=== PATIENT | female | born 1985 | race Caucasian/White ===

== ENCOUNTER → 2018-05-26 | Outpatient (CLI) | payer BC ==
[~2018-05-26] MED LIST: CEPH500C PO; CODE-54 PO; FERR-57 PO; FOLI-88 PO; IBP600T1 PO; ONDA4TAB8 PO; PHEN200T27 PO; POLY10DR OU; PREN1TAB14 PO; SULF1TAB7 PO; TRAM50TA2 PO; TRAZ-144 PO
--- NOTE | 2018-05-26 13:11 | Diagnostic Imaging Report ---
PROCEDURE: US Non-OB pelvis comp/trans. TECHNIQUE: Multiple real-time grayscale images were obtained of the pelvis in various projections endovaginally. Transabdominal imaging was also performed. INDICATION: Fibroids and irregular menses. FINDINGS: The uterus is retroflexed measuring 8.4 x 5.5 x 4.7 cm. The endometrium is approximately 7 mm in thickness. There appears to be an IUD appropriately centered in the endometrial canal. No definite myometrial mass is identified. Right ovary measures 2.8 x 3.7 x 3.6 cm. The right ovary does contain blood flow. The right ovary contains an approximately 2.7 x 2.8 cm cyst. Left ovary is approximately 2.2 x 2.2 cm. Left ovary is limited in evaluation due to bowel gas. There does appear to be a cyst in the posterior cul-de-sac region approximately 2.9 x 2.1 cm. There is some free fluid in the posterior cul-de-sac. No other abnormalities are seen. IMPRESSION: 1. No evidence of uterine fibroids. 2. IUD appears to be appropriately centered in the endometrial canal. 3. 2.8 cm right ovarian cyst. 4. Cyst in the posterior cul-de-sac region, indeterminate. No other significant abnormality is identified. Dictated by: Dictated on workstation # [id number]
== END ==
LOC: RAD 10:44
PROVIDERS: ATTEND Obstetrics & Gynecology
DX: N83.201 Unspecified ovarian cyst, right side (principal); Z97.5 Presence of (intrauterine) contraceptive device
CPT/HCPCS: 76830; 76856

== ENCOUNTER 2018-06-23 13:53 | Outpatient (CLI) | payer BC ==
[~2018-06-23] VITALS: Ht 167.6 cm; Wt 72.1 kg
[2018-06-23 14:23] VITALS: BP 114/80
[2018-06-23] MEDS ORDERED: MULT-884 PO (14:34)
[2018-06-23] MEDS ORDERED: LEVE500T99 PO (14:34)
[2018-06-23] MEDS ORDERED: BIOT25007 PO (14:34)
[2018-06-23 14:36] LABS: BASOPHILS % (AUTO) 1 % (0-10); EOSINOPHILS # (AUTO) 0.2 10^3/uL (0.0-0.3); EOSINOPHILS % (AUTO) 3 % (0-10); HEMATOCRIT 40 % (35-52); HEMOGLOBIN 13.5 G/DL (11.5-16.0); LYMPHOCYTES # (AUTO) 1.5 X 10^3 (1.0-4.0); LYMPHOCYTES % (AUTO) 26 % (12-44); MEAN CORPUSCULAR HEMOGLOBIN 30 PG (25-34); MEAN CORPUSCULAR HGB CONC 34 G/DL (32-36); MEAN CORPUSCULAR VOLUME 90 FL (80-99); MEAN PLATELET VOLUME 8.9 FL (7.4-10.4); MONOCYTES # (AUTO) 0.3 X 10^3 (0.0-1.0); MONOCYTES % (AUTO) 6 % (0-12); NEUTROPHILS # (AUTO) 3.7 X 10^3 (1.8-7.8); NEUTROPHILS % (AUTO) 64 % (42-75); PLATELET COUNT 241 10^3/uL (130-400); RED BLOOD COUNT 4.47 10^6/uL (4.35-5.85); RED CELL DISTRIBUTION WIDTH 12.8 % (10.0-14.5); WHITE BLOOD COUNT 5.8 10^3/uL (4.3-11.0)
== END 2018-06-23 14:35 | disposition home or self-care (01) ==
LOC: PREOP 13:53
PROVIDERS: ATTEND Obstetrics & Gynecology
DX: Z01.812 Encounter for preprocedural laboratory examination (principal); Z11.2 Encounter for screening for other bacterial diseases; N87.9 Dysplasia of cervix uteri, unspecified; N93.9 Abnormal uterine and vaginal bleeding, unspecified; R10.2 Pelvic and perineal pain; Z80.49 Family history of malignant neoplasm of other genital organs
CPT/HCPCS: 36415; 84703; 85025; 86850; 86900; 86901; 87081

== ENCOUNTER 2018-06-26 06:18 | Day surgery (SDC) | payer BC ==
[~2018-06-26] VITALS: Ht 167.6 cm; Wt 72.1 kg
[~2018-06-26 06:18] MED LIST changes: +BIOT25007 PO; +LEVE500T99 PO; +MULT-884 PO
--- OUTSIDE RECORDS SUMMARY | 2018-06-26 06:30 | XMS REPORT | Continuity of Care Document ---
Author Author [facility] Organization [facility] Address Unknown Phone Unavailable Allergies Active Description Code Type Severity Reaction Onset Reported/Identified Relationship to Patient Clinical Status Yes No Known Drug Allergies [id number] Drug Allergy Unknown N/A 06/07/2011 Yes lactose intolerance lactose intolerance Mild N/A 11/16/2014 Medications There is no data. Problems Date Dx Coded Attending Type Code Diagnosis Diagnosed By 06/09/2011 Ot 648.91 OT CURR COND-DELIVERED 06/09/2011 Ot V02.51 GROUP B STREPT CARRIER/SUSPECTED CARRIER 06/09/2011 Ot V06.1 DIPHTHERIA- TETANUS-PERTUSSIS, COMBINED [ 06/09/2011 Ot V27.0 DELIVER- SINGLE LIVEBORN 11/16/2014 KYM TANNER MD Ot 276.8 11/16/2014 KYM TANNER MD Ot 599.0 11/16/2014 KYM TANNER MD Ot 787.01 11/17/2014 KYM TANNER MD Ot 276.8 HYPOPOTASSEMIA 11/17/2014 KYM TANNER MD Ot 372.30 CONJUNCTIVITIS NOS 11/17/2014 KYM TANNER MD Ot 465.9 ACUTE URI NOS 11/17/2014 KYM TANNER MD Ot 590.80 PYELONEPHRITIS NOS 11/17/2014 KYM TANNER MD Ot 599.0 11/17/2014 KYM TANNER MD Ot 787.01 NAUSEA WITH VOMITING 01/10/2015 Ot 789.01 01/10/2015 Ot 649.53 01/10/2015 Ot 649.53 01/10/2015 Ot 649.63 01/10/2015 Ot 729.5 04/04/2016 Ot 649.53 SPOTTING COMP , ANTEPARTUM COND 04/04/2016 Ot 649.53 SPOTTING COMP , ANTEPARTUM COND 04/04/2016 Ot 649.63 UTERINE SIZE DATE DISCREPANCY, ANTEPARTU 04/04/2016 Ot 729.5 PAIN IN LIMB 05/28/2018 DILSHAD CROWE DO Ot N83.201 UNSPECIFIED OVARIAN CYST, RIGHT SIDE 05/28/2018 DILSHAD CROWE DO Ot Z97.5 PRESENCE OF (INTRAUTERINE) CONTRACEPTIVE Procedures Code Description Performed By Performed On 73.6 06/08/2011 Results There is no data. Encounters ACCT No. Visit Date/Time Discharge Status Pt. Type Provider Facility Loc./Unit Complaint [id number] 05/26/2018 10:44:00 05/26/2018 23:59:59 CLS Outpatient DILSHAD CROWE DO [facility] RAD FIBROIDS [id number] 11/15/2014 21:25:00 11/17/2014 09:00:00 DIS Inpatient CIRO MARSHALL, KYM Hough [facility] SURGICAL SEPSIS,UTI, HYPOKALEMIA,N/V [id number] 06/26/2018 10:45:00 PEN Preadmit DILSHAD CROWE DO [facility] SDC RECURRENT CERVICAL DYSPLASIA [id number] 01/10/2015 15:39:00 Document Registration [id number] 11/16/2014 10:26:00 Document Registration [id number] 06/07/2011 19:18:00 Document Registration [id number] 05/28/2011 13:45:00 Document Registration [id number] 01/17/2011 07:59:00 Document Registration [id number] 11/21/2010 13:04:00 Document Registration [id number] 10/25/2010 12:43:00 Document Registration [id number] 03/27/2010 09:01:00 Document Registration
[2018-06-26] MEDS ORDERED: BUPIVACAINE 0.25% 30 ML (SENSORCAINE) VIAL ONE (06:32)
[2018-06-26] MEDS ORDERED: MIDAZOLAM 2 MG/2 ML (VERSED) VIAL ONE (06:50)
[2018-06-26] MEDS ORDERED: ONDANSETRON 4 MG/2 ML (SDV) Z0FRAN ONE (06:50)
[2018-06-26] MEDS ORDERED: LIDOCAINE PF 2% 5 ML (XYLOCAINE) VIAL ONE (06:50)
[2018-06-26] MEDS ORDERED: fentaNYL INJECTION 100 MCG/2 ML AMP ONE (06:50)
[2018-06-26] MEDS ORDERED: proPOfol 200 MG/20 ML (DIPRIVAN) VIAL IV ONE (06:50)
[2018-06-26] MEDS ORDERED: DEXAMETHASONE 10 MG/ML (DECADRON) 1 ML VIAL ONE (06:50)
[2018-06-26] MEDS ORDERED: SEVOFLURANE (ULTANE) 15 ML INHAL SOLN ONE ×7 (06:51→08:51)
[2018-06-26] MEDS ORDERED: ROCURONIUM 10 MG/ML 5 ML SYRINGE IV ONE ×2 (06:51→08:22)
[2018-06-26] MEDS ORDERED: LACTATED RINGERS 1,000 ML IV PRN (06:58)
[2018-06-26] MEDS ORDERED: LACTATED RINGERS 1,000 ML IV ONE (06:58)
[2018-06-26] MEDS ORDERED: ceFAZolin INJECTION 1,000 MG in NS (IVPB) 50 ML IV ONE (07:00)
[2018-06-26] MEDS ORDERED: metroNIDAZOLE 500MG/100ML IVPB 100 ML IV ONE (07:00)
[2018-06-26] MEDS ORDERED: CATHETER FLUSH 10 ML SYR IV PRN (07:15)
--- NOTE | 2018-06-26 07:16 | Progress Note-Pre Operative ---
Pre-Operative Progress Note H&P Reviewed The H&P was reviewed, patient examined and no changes noted. Date Seen by Provider: Jun 26, 2018 Time Seen by Provider: 07:15 Date H&P Reviewed: Jun 26, 2018 Time H&P Reviewed: 07:15 Pre-Operative Diagnosis: Recurrent cervical dysplasia, AUB, CPP DILSHAD CROWE DO Jun 26, 2018 7:16 am
[2018-06-26] MEDS ORDERED: DOCU100C37 PO (07:22)
[2018-06-26] MEDS ORDERED: IBUP-844 PO (07:22)
[2018-06-26] MEDS ORDERED: SIME80TA16 PO (07:22)
[2018-06-26] MEDS ORDERED: HYDR-34 PO (07:22)
--- NOTE | 2018-06-26 07:24 | Discharge Inst-Women's Service ---
Discharge Inst-Women's Serv Depart Medication/Instructions New, Converted or Re-Newed RX: RX on Chart Consults/Follow Up Additional Follow Up: Yes Orders/Referrals Dr. Briggs office in 7-10 days and in 8 weeks Activity Activity: Activity as Tolerated Driving Instructions: No Driving for 1 Week NO SMOKING: NO SMOKING Nothing Inside Vagina: No Douching, No [place], No Tampons Diet Discharge Diet: No Restrictions Symptoms to Report to : Bleeding Excessive, Pain Increased, Fever Over 101 Degrees F, Vaginal Bleeding Increase, Questions/Concerns For Any Problems or Questions: Contact Your Physician Skin/Wound Care Infection Signs and Symptoms: Increased Redness, Foul Odor of Wound, Increased Drainage, Skin Itchy or Has a Rash, Increased Swelling, Temperature Above 101 F Operative Area Clean and Dry: Keep Incision Clean/Dry Stitches/Raymond/Dermabond: Dermabond, Care of Stitches Bathing Instructions: DILSHAD Watters DO Jun 26, 2018 7:23 am
[2018-06-26] MEDS ORDERED: ZOLPIDEM 5 MG (AMBIEN) TAB PO PRN (07:30)
[2018-06-26] MEDS ORDERED: SIMETHICONE 80 MG (MYLICON) CHEW PO PRN (07:30)
[2018-06-26] MEDS ORDERED: ANTACID SUSP 30 ML UDC (MYLANTA) PO PRN (07:30)
[2018-06-26] MEDS ORDERED: CHLORASEPTIC LOZENGE MM PRN (07:30)
[2018-06-26] MEDS ORDERED: DOCUSATE SODIUM 100 MG (COLACE) CAP PO PRN (07:30)
[2018-06-26] MEDS ORDERED: NEOSTIGMINE 1 MG/ML 5 ML SYRINGE ONE (08:42)
[2018-06-26] MEDS: KETOROLAC 30 MG/ML VIAL IV PRN ×3 (08:42→21:08)
[2018-06-26] MEDS ORDERED: GLYCOPYRROLATE 0.2 MG/ML (ROBINUL) 2 ML VIAL ONE (08:42)
[2018-06-26] MEDS ORDERED: morphine INJ 10 MG/ML 1ML (SYR OR VIAL) ONE (08:47)
[2018-06-26] MEDS ORDERED: ONDANSETRON 4 MG/2 ML (SDV) Z0FRAN IVP PRN (09:15)
[2018-06-26] MEDS ORDERED: morphine INJ 10 MG/ML 1ML (SYR OR VIAL) IVP ONE (09:15)
[2018-06-26] MEDS ORDERED: HYDROmorphone 2 MG/ML VIAL (DILAUDID) IV ONE (09:15)
[2018-06-26 10:15] VITALS: BP 120/67
[2018-06-26] MEDS: HYDROcodone/APAP 7.5 MG/325 MG (LORTAB, LORCET PLUS) TABLET PO PRN ×2 (10:50→16:25)
[2018-06-26] MEDS: LACTATED RINGERS 1,000 ML IV SCH ×3 (10:51→16:25)
[2018-06-26] MEDS: ONDANSETRON 4 MG/2 ML (SDV) Z0FRAN IV PRN ×3 (12:13→20:35)
--- NOTE | 2018-06-26 13:32 | Anesthesia-General Post-Op ---
General Patient Condition Mental Status/LOC: Same as Preop Cardiovascular: Satisfactory Nausea/Vomiting: Absent Respiratory: Satisfactory Pain: Controlled Complications: Absent Post Op Complications Complications None Follow Up Care/Instructions Patient Instructions None needed. Anesthesia/Patient Condition Patient Condition Patient is doing well, no complaints, stable vital signs, no apparent adverse anesthesia problems. No complications reported per nursing. NAOMY SILVA CRNA Jun 26, 2018 13:32
--- NOTE | 2018-06-26 13:59 | OPERATIVE REPORT ---
DATE OF SERVICE: 06/26/2018 PREOPERATIVE DIAGNOSES: 1. A 33-year-old female with recurrent cervical dysplasia. 2. Abnormal uterine bleeding. 3. Chronic pelvic pain. POSTOPERATIVE DIAGNOSES: 1. A 33-year-old female with recurrent cervical dysplasia. 2. Abnormal uterine bleeding. 3. Chronic pelvic pain. PROCEDURE PERFORMED: Robotic-assisted total laparoscopic hysterectomy with bilateral salpingectomy. SURGEON: Pedro Pablo Crowe DO. DISC SANDER: Daisy POLANCO. ANESTHESIA: General endotracheal. ESTIMATED BLOOD LOSS: 50 mL. URINE OUTPUT: 250 mL clear at the end of procedure. FLUIDS: 1600 mL lactated Ringer solution. FINDINGS: Grossly normal appearing uterus with a significant amount of serosal adhesions and adhesions of the right ovary to the posterior broad ligament. Evidence from previous ovarian surgery. Grossly normal appearing left ovary and fallopian tube, grossly normal upper abdominal anatomy. SPECIMENS SENT: Uterus, bilateral fallopian tubes. INDICATIONS FOR PROCEDURE: This is a 33-year-old female patient who has had a long ongoing history of issues with abnormal bleeding that she has attempted multiple treatment modalities and all have been unsuccessful, including several attempts and trials of oral contraceptive pills, Depo-Provera injection and even a Mirena IUD. The patient was requesting proceeding with a hysterectomy due to more conservative measures failing. She also has a history of recurrent cervical dysplasia and is concerned about ongoing issues with this and follow up involved in that. Therefore, I did discuss with the patient more conservative measures, including a D and C with possible endometrial ablation; however, she was wanting to proceed with more aggressive measures due to history of cervical dysplasia. Risks of the procedure were discussed with the patient in detail including risk of bleeding, infection, damage to surrounding structures including, but not limited to bowel, bladder, ureter, kidneys, possible need for reoperation, and possible long-term complications. We also discussed recovery time frame, risk from anesthesia and even . After everything was discussed with the patient in the preoperative area, consent was obtained, the patient was taken to the operating room. DESCRIPTION OF PROCEDURE IN DETAIL: Once in the operating room, general anesthesia was found to be adequate. She was placed in the dorsal lithotomy position, prepped and draped in normal sterile fashion. A timeout was performed. A Urena catheter was placed using sterile technique. A weighted speculum was inserted into the patient's vagina. A right angle retractor was used to visualize the cervix, which was grasped at 12 o'clock position using a long Allis clamp. I then placed an #0 Vicryl suture to the anterior lip of the cervix and removed the Allis clamp. I used the suture as my retraction point. I then gently sound the uterine cavity depth, which was found to 8 cm. I then selected an 8 cm Christelle uterine manipulator tip and a 3.5 cm colpotomy ring. I assembled the Christelle manipulator and advanced the manipulator tip into the uterus deployed into the balloon and advanced the colpotomy ring around the vaginal fornix. Excellent uterine manipulation is appreciated on bimanual examination after this was done. I then performed a change of gloves. I took my attention to the abdomen where infraumbilically I infiltrated this area using 0.25% Marcaine, making 8 mm incision and directed Veress needle through the incision until intraperitoneal placement was confirmed using a saline drop test. I then proceeded with insufflation using CO2 gas and opening pressure of 4 mmHg was note. I proceeded to maximum pressure of 15 mmHg, at which point I removed the Veress needle and introduced an 8 mm blunt da Elle camera trocar. Once this was in place, I am able to confirm a trocar placement using the da Elle laparoscope. I then had the patient placed in steep Trendelenburg after briefly scanning the upper abdominal anatomy which was found to be normal. Once in steep Trendelenburg, I am able to visualize all of the anatomy necessary to proceed with the procedure as planned. I then placed two lateral trocars approximately 8 to 10 cm lateral to my infraumbilical trocar. The skin was infiltrated using 0.25% Marcaine, 8 mm incisions were made and the trocars were both placed under direct visualization of the laparoscope. Once the trocars were in place, I bring in the da Elle robot and docked in the appropriate fashion placing the monopolar marty in the right hand and a da Elle vessel sealer in the left hand. I then took my place at the [facility] operative console and performed the following dissection bilaterally starting at the uteroovarian ligament, bipolar cauterized and transected using the vessel sealer. I then created a window in the mesosalpinx using the monopolar marty and took this laterally using the vessel sealer amputating the fallopian tube from its blood supply. I then grasped the round ligament, bipolar cauterized and transected using the vessel sealer and then I am able to grasp the entire broad ligament, bipolar cauterized and transected using the vessel sealer down to the level of the lower uterine segment, at which point I the anterior and posterior leaflets of the broad ligament. The anterior leaflet dissection was taken down to the anterior vaginal fornix. The posterior leaflet was taken down to the posterior vaginal fornix. This allows me to skeletonize the uterine vessels laterally and bipolar cauterized and I then transected them using the vessel sealer as well. I then created a window in the anterior vaginal fornix using monopolar marty and took this circumferentially around the vaginal fornix amputating the cervix away from the vagina. The entire specimen was then removed through the vagina. I then closed the lateral vaginal apices of the vaginal cuff using 2-0 Vicryl suture in a [id number] fashion, colposuspending them to the uterosacral ligaments. I then closed the remainder of the vaginal cuff using 2-0 V-Loc in a running fashion, after which there was no active bleeding noted from any of my dissection planes. I then undocked the da Elle robot and proceeded with the remainder of the case laparoscopically. I then copiously irrigated the pelvis with normal saline. Once again, there was no active bleeding noted from any of my dissection planes. I then placed FloSeal hemostatic agent over all my planes of dissection and I had the patient taken out of steep Trendelenburg. The lateral trocars were then removed under direct visualization of the laparoscope. The infraumbilical trocar was left in place to release insufflation and to introduce 10 mL of 0.25% Marcaine for postoperative pain management. I then removed this trocar as well. The skin was then reapproximated using 4-0 Monocryl in simple interrupted fashion. Skin Affix was applied over the incisions and Band-Aids were placed over these. A Urena catheter was left in place. All other instruments were removed from the patient. Lap and sponge counts were correct at the end of the procedure and instrument count was correct as well. Two grams of Ancef and 500 mg of Flagyl were given preoperatively for infection prophylaxis. The patient tolerated the procedure well and sent to recovery in stable condition. Job ID: [id number] DocumentID: [id number] Dictated Date: 06/26/2018 09:14:21 Hypnotherapist Date: 06/26/2018 13:59:05 Dictated By: PEDRO PABLO CROWE DO
[2018-06-26 16:30] VITALS: BP 136/75
[2018-06-26 20:35] VITALS: BP 112/74
[2018-06-26] MEDS ORDERED: PROMETHAZINE INJ 25 MG/ML (PHENERGAN) AMP IVP PRN (21:30)
[2018-06-26 23:40] VITALS: BP 99/68
[2018-06-27 05:18] VITALS: BP 92/60
[2018-06-27] MEDS ORDERED: IBUPROFEN 600 MG (MOTRIN) TAB PO PRN (07:00)
[2018-06-27 09:40] VITALS: BP 112/63
== END 2018-06-27 09:55 | disposition home or self-care (01) ==
LOC: SDC 06:18 → WS 10:40 → SDC 06-27 09:55
PROVIDERS: ATTEND Obstetrics & Gynecology
DX: N87.0 Mild cervical dysplasia (principal); D25.2 Subserosal leiomyoma of uterus; Z80.49 Family history of malignant neoplasm of other genital organs; G40.909 Epilepsy, unspecified, not intractable, without status epilepticus; Z79.899 Other long term (current) drug therapy
CPT/HCPCS: 86850; 86900; 86901; 88307; 94664

== ENCOUNTER 2018-07-07 19:33 | Emergency (ER) | payer BC ==
[~2018-07-07] VITALS: Ht 162.6 cm; Wt 65.8 kg
[~2018-07-07 19:33] MED LIST changes: +DOCU100C37 PO; +HYDR-34 PO; +IBUP-844 PO; +SIME80TA16 PO
--- OUTSIDE RECORDS SUMMARY | 2018-07-07 19:40 | XMS REPORT | Continuity of Care Document ---
Author Author [facility] Organization [facility] Address Unknown Phone Unavailable Allergies Active Description Code Type Severity Reaction Onset Reported/Identified Relationship to Patient Clinical Status Yes No Known Drug Allergies [id number] Drug Allergy Unknown N/A 06/07/2011 Yes lactose intolerance lactose intolerance Mild N/A 11/16/2014 Yes lactose [id number] Drug Allergy Unknown N/A 06/23/2018 Medications There is no data. Problems Date [...] 04/04/2016 Ot 729.5 PAIN IN LIMB 05/28/2018 AMRITA DILSHAD DE LA CRUZ Ot N83.201 UNSPECIFIED OVARIAN CYST, RIGHT SIDE 05/28/2018 AMRITA DE LA CRUZDILSHAD Ot Z97.5 PRESENCE OF (INTRAUTERINE) CONTRACEPTIVE 06/23/2018 AMRITA DILSHAD DE LA CRUZ Ot N83.201 UNSPECIFIED OVARIAN CYST, RIGHT SIDE 06/23/2018 AMRITA DILSHAD DE LA CRUZ Ot Z97.5 PRESENCE OF (INTRAUTERINE) CONTRACEPTIVE 06/24/2018 AMRITA DILSHAD DE LA CRUZ Ot N87.9 DYSPLASIA OF CERVIX UTERI, UNSPECIFIED 06/24/2018 AMRITA DILSHAD DE LA CRUZ Ot N93.9 ABNORMAL UTERINE AND VAGINAL BLEEDING, U 06/24/2018 MARISAFERMIN DILSHAD DE LA CRUZ Ot R10.2 PELVIC AND PERINEAL PAIN 06/24/2018 AMRITA DILSHAD DE LA CRUZ Ot Z01.812 ENCOUNTER FOR PREPROCEDURAL LABORATORY E 06/24/2018 MARISAFERMIN DILSHAD DE LA CRUZ Ot Z11.2 ENCOUNTER FOR SCREENING FOR OTHER BACTER 06/24/2018 MARISAFERMIN DILSHAD DE LA CRUZ Ot Z80.49 FAMILY HISTORY OF MALIGNANT NEOPLASM OF 06/27/2018 DILSHAD CROWE DO, Ot N87.9 DYSPLASIA OF CERVIX UTERI, UNSPECIFIED 06/27/2018 DILSHAD CROWE DO Ot N93.9 ABNORMAL UTERINE AND VAGINAL BLEEDING, U 06/27/2018 MARIASFERMIN DILSHAD DE LA CRUZ Ot R10.2 PELVIC AND PERINEAL PAIN 07/03/2018 DILSHAD CROWE DO Ot 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 07/03/2018 DILSHAD CROWE DO Ot G40.909 EPILEPSY, UNSP, NOT INTRACTABLE, WITHOUT 07/03/2018 DILSHAD CROWE DO Ot N87.0 MILD CERVICAL DYSPLASIA 07/03/2018 DILSHAD CROWE DO Ot Z79.899 OTHER [facility] (CURRENT) DRUG THERAPY 07/03/2018 DILSHAD CROWE DO Ot Z80.49 FAMILY HISTORY OF MALIGNANT NEOPLASM OF Procedures Code Description Performed By Performed On 73.6 06/08/2011 Results Test Result Range Methicillin resistant Staphylococcus aureus (MRSA) screening culture - 14:14 Methicillin resistant Staphylococcus aureus (MRSA) screening culture NEG NRG Complete blood count (CBC) with automated white blood cell (WBC) differential - 06/23/18 14:15 Blood leukocytes automated count (number/volume) 5.8 10*3/uL 4.3-11.0 Blood erythrocytes automated count (number/volume) 4.47 10*6/uL 4.35-5.85 Venous blood hemoglobin measurement (mass/volume) 13.5 g/dL 11.5-16.0 Blood hematocrit (volume fraction) 40 % 35-52 Automated erythrocyte mean corpuscular volume 90 [foz_us] 80-99 Automated erythrocyte mean corpuscular hemoglobin (mass per erythrocyte) 30 pg 25-34 Automated erythrocyte mean corpuscular hemoglobin concentration measurement ( mass/volume) 34 g/dL 32-36 Automated erythrocyte distribution width ratio 12.8 % 10.0-14.5 Automated blood platelet count (count/volume) 241 10*3/uL 130-400 Automated blood platelet mean volume measurement 8.9 [foz_us] 7.4-10.4 Automated blood neutrophils/100 leukocytes 64 % 42-75 Automated blood lymphocytes/100 leukocytes 26 % 12-44 Blood monocytes/100 leukocytes 6 % 0-12 Automated blood eosinophils/100 leukocytes 3 % 0-10 Automated blood basophils/100 leukocytes 1 % 0-10 Blood neutrophils automated count (number/volume) 3.7 10*3 1.8-7.8 Blood lymphocytes automated count (number/volume) 1.5 10*3 1.0-4.0 Blood monocytes automated count (number/volume) 0.3 10*3 0.0-1.0 Automated eosinophil count 0.2 10*3/uL 0.0-0.3 Automated blood basophil count (count/volume) 0.0 10*3/uL 0.0-0.1 Blood type T Indirect antibody screen panel - 06/23/18 14:15 ABO+Rh group OP NRG Blood group antibody screen NEGATIVE NRG Urine beta human chorionic gonadotropin (hCG) measurement - 06/23/18 14:20 Urine beta human chorionic gonadotropin (hCG) measurement NEGATIVE NEGATIVE Blood type T Indirect antibody screen panel - 06/26/18 06:40 ABO+Rh group OP NRG Transfusion band number [id number] NRG Blood group antibody screen NEGATIVE NRG Encounters ACCT No. Visit Date/Time Discharge Status Pt. Type Provider Facility Loc./Unit Complaint [id number] 06/26/2018 06:18:00 06/27/2018 09:55:00 DIS Outpatient DILSHAD CROWE DO [facility] SDC RECURRENT CERVICAL DYSPLASIA [id number] 06/23/2018 13:53:00 06/23/2018 14:35:00 DIS Outpatient DILSHAD CROWE DO [place] [facility] PREOP RECURRENT CERVICAL DYSPLASIA [id number] 05/26/2018 10:44:00 05/26/2018 23:59:59 CLS Outpatient MARISAFERMIN DILSHAD DE LA CRUZ [place] [facility] RAD FIBROIDS [id number] 11/15/2014 21:25:00 11/17/2014 09:00:00 DIS Inpatient CIRO MARSHALL, KYM Hough [facility] SURGICAL SEPSIS,UTI, HYPOKALEMIA,N/V [id number] 01/10/2015 15:39:00 Document Registration [id number] 11/16/2014 10:26:00 Document Registration [id number] 06/07/2011 19:18:00 Document Registration [id number] 05/28/2011 13:45:00 Document Registration [id number] 01/17/2011 07:59:00 Document Registration [id number] 11/21/2010 13:04:00 Document Registration [id number] 10/25/2010 12:43:00 Document Registration [id number] 03/27/2010 09:01:00 Document Registration
[2018-07-07 20:04] LABS: BASOPHILS # (AUTO) 0.1 10^3/uL (0.0-0.1); BASOPHILS % (AUTO) 1 % (0-10); EOSINOPHILS # (AUTO) 0.3 10^3/uL (0.0-0.3); EOSINOPHILS % (AUTO) 3 % (0-10); HEMATOCRIT 42 % (35-52); HEMOGLOBIN 14.2 G/DL (11.5-16.0); LYMPHOCYTES # (AUTO) 1.4 X 10^3 (1.0-4.0); LYMPHOCYTES % (AUTO) 14 % (12-44); MEAN CORPUSCULAR HEMOGLOBIN 29 PG (25-34); MEAN CORPUSCULAR HGB CONC 34 G/DL (32-36); MEAN CORPUSCULAR VOLUME 87 FL (80-99); MEAN PLATELET VOLUME 8.1 FL (7.4-10.4); MONOCYTES # (AUTO) 0.5 X 10^3 (0.0-1.0); MONOCYTES % (AUTO) 6 % (0-12); NEUTROPHILS # (AUTO) 7.4 X 10^3 (1.8-7.8); NEUTROPHILS % (AUTO) 77 % (42-75); PLATELET COUNT 466 10^3/uL (130-400); RED BLOOD COUNT 4.83 10^6/uL (4.35-5.85); RED CELL DISTRIBUTION WIDTH 12.2 % (10.0-14.5); WHITE BLOOD COUNT 9.6 10^3/uL (4.3-11.0)
--- NOTE | 2018-07-07 20:04 | ED Abdominal Pain ---
General Chief Complaint: -Female Stated Complaint: HAD SURGERY HYSTROCTOMY LAST WEEK, NAUSEA,FEVER, Nursing Triage Note: THE PT IS AMBULATORY TO THE ROOM WITHOUT DIFFICULTY. NO DISTRESS IS SEEN ON ARRIVAL. LOC IS NORMAL FOR THE PT. Sepsis Screen: No Definite Risk Source of Information: Patient Exam Limitations: No Limitations History of Present Illness Date Seen by Provider: Jul 07, 2018 Time Seen by Provider: 20:02 Initial Comments To ER with reports of recent hysterectomy nausea and fever. She had a laparoscopic robotic-assisted hysterectomy [address] CROWE here. 2 days ago she began having fevers and nausea. She was seen by urgent care and given a shot of an antibiotic unknown exactly what kind, started empirically on Bactrim for white blood cells found in the urine. She states that she has a history of kidney infection and "abscess rupture, kidney" she is scared that may be the case again. Timing/Duration: 1-2 Days Severity/Quality: Moderate Associated Symptoms: Fever/Chills, Nausea/Vomiting Allergies and Home Medications Allergies Coded Allergies: lactose (Verified Allergy, Unknown, 06/23/18) Home Medications Biotin 2,500 Mcg Capsule, 2,500 MCG PO DAILY, (Reported) Docusate Sodium 100 Mg Capsule, 100 MG PO BID PRN for CONSTIPATION-1ST LINE Prescribed by: DILSHAD CROWE on 06/26/18721 Hydrocodone Bit/Acetaminophen 1 Ea Tablet, 2 EA PO Q6H PRN for Pain-See Instructions Prescribed by: DILSHAD CROWE on 06/26/18721 Ibuprofen 600 Mg Tablet, 600 MG PO Q6H PRN for PAIN-MODERATE Prescribed by: DILSHAD CROWE on 06/26/18721 Levetiracetam 500 Mg Tablet, 500 MG PO BID, (Reported) Multivits,Ca,Minerals/Iron/FA 1 Each Tablet, 1 EACH PO DAILY, (Reported) Simethicone 80 Mg Tab.chew, 40 MG PO TID PRN for INDIGESTION 2ND LINE Prescribed by: DILSHAD CROWE on 06/26/18721 Patient Home Medication List Home Medication List Reviewed: Yes Review of Systems Review of Systems Constitutional: see HPI, chills, fever EENTM: No Symptoms Reported Respiratory: No Symptoms Reported Cardiovascular: No Symptoms Reported Gastrointestinal: See HPI Genitourinary: No Symptoms Reported Musculoskeletal: no symptoms reported Skin: no symptoms reported Psychiatric/Neurological: No Symptoms Reported Endocrine: No Symptoms Reported Past Xnpykjl-Vqtqfr-Ovpfrz Hx Patient Social History Recent Foreign Travel: No Contact w/Someone Who Travel: No Recent Infectious Disease Expo: No Recent Hopitalizations: No Physical Abuse: No Sexual Abuse: No Mistreated: No Fear: No Immunizations Up To Date Tetanus Booster (TDap): Unknown Seasonal Allergies Seasonal Allergies: Yes Past Medical History Surgeries: Yes (DXLS FOR OVARIAN CYST) Respiratory: No Cardiac: No Neurological: Yes Reproductive Disorders: Yes Sexually Transmitted Disease: No Genitourinary: No Gastrointestinal: No Irritable Bowel Musculoskeletal: No Endocrine: No HEENT: No Cancer: No (PRECANCEROUS CERVIAL) Psychosocial: No Integumentary: No Blood Disorders: No Adverse Reaction/Blood Tranf: No Family Medical History Arthritis 19 MOTHER CROHN G8 BROTHER Deafness or hearing loss 19 FATHER 19 MOTHER FH: Crohn's disease Hypertension 19 FATHER Hypertension, Seizures Physical Exam Vital Signs Vital Signs - First Documented 07/07/18 19:52 Temp 97.5 Pulse 95 Resp 16 B/P (MAP) 123/84 (97) Capillary Refill : Less Than 3 Seconds Height/Weight/BMI Height: 5'4.00" Weight: 145lbs. 0.0oz. 65.418964jn; 25.7 BMI Method:Estimated General Appearance: WD/WN, no apparent distress HEENT: PERRL/EOMI, normal ENT inspection Respiratory: no respiratory distress, no accessory muscle use Cardiovascular: regular rate, rhythm, no murmur Gastrointestinal: normal bowel sounds, non tender Extremities: normal range of motion, non-tender Neurologic/Psychiatric: alert, normal mood/affect, oriented x 3 Skin: normal color, warm/dry Progress/Results/Core Measures Results/Orders Lab Results Laboratory Tests Test 07/07/18 19:50 07/07/18 19:55 Range/Units Urine Color YELLOW Urine Clarity CLEAR Urine pH 5 5-9 Urine Specific Ulman 1.025 H 1.016-1.022 Urine Protein 1+ H NEGATIVE Urine Glucose (UA) NEGATIVE NEGATIVE Urine Ketones NEGATIVE NEGATIVE Urine Nitrite NEGATIVE NEGATIVE Urine Bilirubin NEGATIVE NEGATIVE Urine Urobilinogen NORMAL NORMAL MG/DL Urine Leukocyte Esterase 1+ H NEGATIVE Urine RBC (Auto) 1+ H NEGATIVE Urine RBC RARE /HPF Urine WBC 0-2 /HPF Urine Squamous Epithelial Cells 10-25 H /HPF Urine Crystals NONE /LPF Urine Bacteria FEW H /HPF Urine Casts NONE /LPF Urine Mucus LARGE H /LPF Urine Culture Indicated NO White Blood Count 9.6 4.3-11.0 10^3/uL Red Blood Count 4.83 4.35-5.85 10^6/uL Hemoglobin 14.2 11.5-16.0 G/DL Hematocrit 42 35-52 % Mean Corpuscular Volume 87 80-99 FL Mean Corpuscular Hemoglobin 29 25-34 PG Mean Corpuscular Hemoglobin Concent 34 32-36 G/DL Red Cell Distribution Width 12.2 10.0-14.5 % Platelet Count 466 H 130-400 10^3/uL Mean Platelet Volume 8.1 7.4-10.4 FL Neutrophils (%) (Auto) 77 H 42-75 % Lymphocytes (%) (Auto) 14 12-44 % Monocytes (%) (Auto) 6 0-12 % Eosinophils (%) (Auto) 3 0-10 % Basophils (%) (Auto) 1 0-10 % Neutrophils # (Auto) 7.4 1.8-7.8 X 10^3 Lymphocytes # (Auto) 1.4 1.0-4.0 X 10^3 Monocytes # (Auto) 0.5 0.0-1.0 X 10^3 Eosinophils # (Auto) 0.3 0.0-0.3 10^3/uL Basophils # (Auto) 0.1 0.0-0.1 10^3/uL Sodium Level 142 135-145 MMOL/L Potassium Level 3.2 L 3.6-5.0 MMOL/L Chloride Level 102 98-107 MMOL/L Carbon Dioxide Level 25 21-32 MMOL/L Anion Gap 15 H 5-14 MMOL/L Blood Urea Nitrogen 8 7-18 MG/DL Creatinine 0.94 0.60-1.30 MG/DL Estimat Glomerular Filtration Rate > 60 BUN/Creatinine Ratio 9 Glucose Level 87 70-105 MG/DL Calcium Level 10.2 H 8.5-10.1 MG/DL Corrected Calcium 8.5-10.1 MG/DL Total Bilirubin 0.4 0.1-1.0 MG/DL Aspartate Amino Transf (AST/SGOT) 47 H 5-34 U/L Alanine Aminotransferase (ALT/SGPT) 77 H 0-55 U/L Alkaline Phosphatase 126 40-136 U/L Total Protein 8.4 H 6.4-8.2 GM/DL Albumin 4.9 H 3.2-4.5 GM/DL My Orders Orders - KELLY ZEPEDA APRN Iv Heplock-Insert (Order) (07/07/18 19:50) Cbc With Automated Diff (07/07/18 19:50) Comprehensive Metabolic Panel (07/07/18 19:50) Ua Culture If Indicated (07/07/18 19:50) Ct Abdomen/Pelvis W (07/07/18 20:01) Iohexol Injection (Omnipaque 350 Mg/Ml 1 (07/07/18 20:15) Contrast Received (Contrast Received) (07/07/18 20:15) Ns (Ivpb) (Sodium Chloride 0.9%) (07/07/18 20:15) Ondansetron Injection (Zofran Injectio (07/07/18 20:30) Ns Iv 1000 Ml (Sodium Chloride 0.9%) (07/07/18 20:30) Medications Given in ED Current Medications Medications Dose Ordered Sig/Tj Route Start Time Stop Time Status Last Admin Dose Admin Iohexol 100 ml ONCE ONCE IV 07/07/18 20:15 07/07/18 20:16 DC 07/07/18 20:40 100 ML Ondansetron HCl 8 mg ONCE ONCE IVP 07/07/18 20:30 07/07/18 20:31 DC 07/07/18 20:33 8 MG Sodium Chloride 250 ml ONCE ONCE IV 07/07/18 20:15 07/07/18 20:16 DC 07/07/18 21:03 80 ML Vital Signs/I&O 07/07/18 19:52 Temp 97.5 Pulse 95 Resp 16 B/P (MAP) 123/84 (97) Blood Pressure Mean: 97 Departure Communication (Admissions) She states there were white blood cells in her urine yesterday at [facility], none today. She still has some chills and nausea. I will give her a take-home pack of Zofran and discharged home with plan to continue Bactrim. She has had some trouble sleeping the past few nights so I'll order a take-home pack of Ativan to take 1 at bedtime. Impression Primary Impression: Nausea and vomiting Additional Impression: Recent urinary tract infection Disposition: HOME, SELF-CARE Condition: Stable Departure-Patient Inst. Decision time for Depature: 21:44 Referrals: KYM TANNER MD (PCP/Family) Primary Care Physician Patient Instructions: Nausea and Vomiting, Adult Add. Discharge Instructions: 1. Continue taking the Bactrim until it is finished 2. Use the nausea medication as needed 3. Return to ER for any concerns. All discharge instructions reviewed with patient and/or family. Voiced understanding. Scripts Ondansetron HCl (Zofran) 4 Mg Tab 4 MG PO Q6H PRN for NAUSEA/VOMITING, #10 TAB Prov: KELLY ZEPEDA APRN 07/07/18 Work/School Note: Work Release Form Date Seen in the Emergency Department: Jul 07, 2018 Return to Work: Jul 09, 2018 KELLY ZEPEDA APRN Jul 07, 2018 20:04
[2018-07-07 20:12] LABS: BILIRUBIN,URINE NEGATIVE (NEGATIVE); CLARITY,URINE CLEAR; COLOR,URINE YELLOW; GLUCOSE, URINE (UA) NEGATIVE (NEGATIVE); KETONES,URINE NEGATIVE (NEGATIVE); LEUKOCYTE ESTERASE ,URINE 1+ (NEGATIVE); NITRITE,URINE NEGATIVE (NEGATIVE); PH,URINE 5 (5-9); PROTEIN,URINE 1+ (NEGATIVE); UROBILINOGEN,URINE NORMAL (NORMAL)
[2018-07-07] MEDS ORDERED: IOHEXOL 350 MG/ML 100 ML (OMNIPAQUE 350) VIAL IV ONE (20:15)
[2018-07-07] MEDS ORDERED: NS 250 ML (IVPB) BAG IV ONE (20:15)
[2018-07-07] MEDS ORDERED: RECEIVED CONTRAST (Hold Metformin) IV SCH (20:15)
[2018-07-07 20:28] LABS: ALANINE AMINOTRANSFERASE 77 U/L (0-55); ALBUMIN 4.9 GM/DL (3.2-4.5); ALKALINE PHOSPHATASE 126 U/L (40-136); BILIRUBIN,TOTAL 0.4 MG/DL (0.1-1.0); BUN/CREATININE RATIO 9; CALCIUM 10.2 MG/DL (8.5-10.1); CARBON DIOXIDE 25 MMOL/L (21-32); CHLORIDE 102 MMOL/L (98-107); CREATININE SERUM 0.94 MG/DL (0.60-1.30); GFR ESTIMATED > 60; GLUCOSE 87 MG/DL (70-105); POTASSIUM 3.2 MMOL/L (3.6-5.0); SODIUM 142 MMOL/L (135-145); TOTAL PROTEIN 8.4 GM/DL (6.4-8.2)
[2018-07-07] MEDS ORDERED: ONDANSETRON 4 MG/2 ML (SDV) Z0FRAN IVP ONE (20:30)
[2018-07-07] MEDS ORDERED: NS IV 1000 ML 1,000 ML IV SCH (20:30)
[2018-07-07 20:32] LABS: BACTERIA,URINE FEW /HPF; RBC,URINE RARE /HPF; WBC,URINE 0-2 /HPF
--- NOTE | 2018-07-07 21:36 | Diagnostic Imaging Report ---
PROCEDURE: CT abdomen and pelvis with contrast. TECHNIQUE: Multiple contiguous axial images were obtained through the abdomen and pelvis after administration of intravenous contrast. INDICATION: Pelvic and low back pain. Hematuria, fever, nausea, and vomiting. Patient reports hysterectomy approximately 1 week ago. COMPARISON: CT abdomen and pelvis performed on 11/15/2014. FINDINGS: The lung bases are clear and visualized heart is normal in size. The liver, spleen, pancreas, gallbladder, and adrenal glands are normal. No biliary ductal dilatation. The kidneys enhance symmetrically, without evidence of renal calculus, hydronephrosis, or suspicious mass. The visualized ureters are normal. Stomach and duodenum are normal. Small bowel and colon are normal in course and caliber, without evidence of wall thickening or obstruction. The appendix is not definitely visualized. No inflammatory change adjacent to the cecum to suggest acute appendicitis. There is subtle stranding in the pelvis. No pneumoperitoneum or abdominal free fluid. No focal/rim-enhancing collection is demonstrated in the abdomen or pelvis. The bladder appears normal, without evidence of wall thickening. The abdominal wall is unremarkable. No acute osseous abnormality. IMPRESSION: Subtle inflammatory change in the pelvis. This may be related to patient's recent hysterectomy. There is no evidence of free air, with focal/rim-enhancing fluid collection, or bowel obstruction. Dictated by: Dictated on workstation # [id number]
[2018-07-07] MEDS ORDERED: RX-ONDANSETRON 4 MG ODT (ZOFRAN) PPK #4 PO STA (21:43)
[2018-07-07] MEDS ORDERED: ONDN4T PO (21:46)
[2018-07-07] MEDS ORDERED: RX-LORAZEPAM (ATIVAN) 0.5 MG TAB PPK#4 PO STA (21:47)
[2018-07-07 21:58] VITALS: BP 122/77
== END 2018-07-07 22:15 | disposition home or self-care (01) ==
LOC: EDUNIT# 19:33 → ER 19:36
DX: N39.0 Urinary tract infection, site not specified (principal); Z90.710 Acquired absence of both cervix and uterus; Z87.448 Personal history of other diseases of urinary system; Z88.8 Allergy status to other drugs, medicaments and biological substances; Z87.19 Personal history of other diseases of the digestive system; Z85.41 Personal history of malignant neoplasm of cervix uteri; Z82.49 Family history of ischemic heart disease and other diseases of the circulatory system
CPT/HCPCS: 36415; 74177; 80053; 81000; 85025

== ENCOUNTER 2019-12-27 17:25 | Emergency (ER) | payer BC, OTHER ==
[~2019-12-27] VITALS: Ht 170.2 cm; Wt 76.0 kg
[~2019-12-27 17:25] MED LIST changes: +ONDN4T PO
--- OUTSIDE RECORDS SUMMARY | 2019-12-27 17:32 | XMS REPORT | CCD ---
Author Author [employer] MAH[facility] [place] Address Unknown Phone Unavailable Care Team Providers Care Radiographer Angiogram Name Role Phone STANFORD MARSHALL, DR Iraida HUFFMAN CP PHYSICIAN OT, Unspecified RP [phone] Allergies, Adverse Reactions, Alerts Substance Reaction Status No known allergies Active Problem List Condition Effective Dates Status None Resolved Medications Medication Instructions Start Date End Date Status Zofran ODT 4 mg oral = 1 tab, PO, q6hr, # 14 tab, 0 3 Ordered tablet, Refill(s) disintegrating Vital Signs Most recent to oldest [Reference Range]: 1 Temperature Oral [96.4-99.1 DegF] 98.2 DegF (08/16/2012 23:53:00) Heart Rate [60-100 bpm] 123 bpm *HI* (08/16/2012 23:53:00) Respiratory Rate Spontaneous [14-20 br/min] 18 br/min (08/16/2012 23:53:00) O2 Saturation [92-100 %] 100 % (08/16/2012 23:53:00) Systolic Blood Pressure NBP [90-150 mmHg] 113 mmHg (08/16/2012 23:53:00) Diastolic Blood Pressure NBP [60-90 mmHg] 71 mmHg (08/16/2012 23:53:00) Blood Pressure NBP MAP 85 mmHg (08/16/2012 23:53:00) Estimated Weight in lbs 140.0 Lb (08/16/2012 23:53:00) Estimated Weight in kg 63.502 kg (08/16/2012 23:53:00) Medication Dose Weight (Verify UOM) 63.502 kg (08/16/2012 23:53:00) Height in cm 170.18 cm (08/16/2012 23:53:00) Height in inches 67.00 inch (08/16/2012 23:53:00) Pain Level 5 (08/17/2012 00:20:00) Pain Non Verbal Behaviors Restless (08/17/2012 00:20:00) Detailed Pain Description Cramping (08/17/2012 00:20:00) Pain Location Lower (08/17/2012 00:20:00) Pain Site Abdomen (08/17/2012 00:20:00) Pain Type Acute (08/17/2012 00:20:00) Results Hematology Most recent to oldest [Reference Range]: 1 WBC [4.40-10.50 x10 3/MM3] 13.74 x10 3/MM3 1 *HI* (08/17/2012 00:15:00) Immature Granulocytes [<1.0 %] 5.9 % 2 *HI* (08/17/2012 00:15:00) Abs Immature Granulocyte Cnt [0.00-0.14 x10 3/MM3] 0.8 1 x10 3/MM3 3 *HI* (08/17/2012 00:15:00) RBC [3.75-5.00 x10 6/MM3] 5.75 x10 6/MM3 4 *HI* (08/17/2012 00:15:00) Hgb [11.4-14.7 gm/dL] 17.7 gm/dL 5 *HI* (08/17/2012 00:15:00) Hct [34.3-45.5 %] 49.8 % 6 *HI* (08/17/2012 00:15:00) MCV [80.5-99.8 fL] 86.6 fL 7 (08/17/2012 00:15:00) MCH [26.8-33.0 picogram] 30.8 picogram 8 (08/17/2012 00:15:00) MCHC [31.0-35.4 %] 35.5 % 9 *HI* (08/17/2012 00:15:00) RDW [11.7-14.7 %] 12.4 % 10 (08/17/2012 00:15:00) Platelet Count [139-361 x10 3/MM3] 187 x10 3/MM3 11 (08/17/2012 00:15:00) MPV [9.7-12.5 fL] 9.5 fL 12 *LOW* (08/17/2012 00:15:00) Neutrophils [50.0-70.0 %] 90.0 % 13 *HI* (08/17/2012 00:15:00) Bands [0-12 %] 4.0 % 14 (08/17/2012 00:15:00) Lymphocytes [20.5-45.0 %] 3.0 % 15 *LOW* (08/17/2012 00:15:00) Monocytes [1-15 %] 3.0 % 16 (08/17/2012 00:15:00) Eosinophils [0-5 %] 0.0 % 17 (08/17/2012 00:15:00) Basophils [0-2 %] 0.0 % 18 (08/17/2012 00:15:00) Abs Neutrophil Cnt [1.50-7.50 x10 3/MM3] 12.37 x10 3/M M3 19 *HI* (08/17/2012 00:15:00) Abs Band Cnt [0.00-0.70 x10 3/MM3] 0.55 x10 3/MM3 20 (08/17/2012 00:15:00) Abs Lymphocyte Cnt [1.00-4.80 x10 3/MM3] 0.41 x10 3/MM 3 21 *LOW* (08/17/2012 00:15:00) Abs Monocyte Cnt [0.00-0.80 x10 3/MM3] 0.41 x10 3/MM3 22 (08/17/2012 00:15:00) Abs Eosinophil Cnt [0.00-0.50 x10 3/MM3] 0.00 x10 3/MM 3 23 (08/17/2012 00:15:00) Abs Basophil Cnt [0.00-0.20 x10 3/MM3] 0.00 x10 3/MM3 24 (08/17/2012 00:15:00) 1Performing Lab: Performed at [facility] * [facility] [address] * [place] [address] * 2Performing Lab: Performed at [facility] * [address] * [place] [address] * 3Performing Lab: Performed at [facility] * [address] * [place], [place] [address] * 4Performing Lab: Performed at [facility] * [address] * [place], [place] [address] * 5Performing Lab: Performed at [facility] * [address] * [place] [address] * 6Performing Lab: Performed at [facility] * [address] * [place] [address] * 7Performing Lab: Performed at [facility] * [address] * [place] [address] * 8Performing Lab: Performed at [facility] * [address] * [place] [address] * 9Performing Lab: Performed at [facility] * [address] * [place] [address] * 10Performing Lab: Performed at [facility] * [address] * [place], [place] [address] * 11Performing Lab: Performed at [facility] * [address] * [place] [address] * 12Performing Lab: Performed at [facility] * [address] * [place] [address] * 13Performing Lab: Performed at [facility] * [address] * [place], [place] [address] * 14Performing Lab: Performed at [facility] * [address] * [place] [address] * 15Performing Lab: Performed at [facility] * [address] * [place] [address] * 16Performing Lab: Performed at [facility] * [address] * [place] [address] * 17Performing Lab: Performed at [facility] * [address] * [place] [address] * 18Performing Lab: Performed at [facility] * [address] [place] [address] Place * [place] [address] * 19Performing Lab: Performed at [facility] * [address] [place] [address] Place * [place] [address] * 20Performing Lab: Performed at [facility] * [address] [place] [address] * [place] [address] * 21Performing Lab: Performed at [facility] * [address] [place] [address] * [place] [address] * 22Performing Lab: Performed at [facility] * [address] [place] [address] * [place] [address] * 23Performing Lab: Performed at [facility] * [address] [place] [address] * [place] [address] * 24Performing Lab: Performed at [facility] * [address] [place] [address] * [place] [address] * Chemistry Most recent to oldest [Reference Range]: 1 Sodium Lvl [135-145 mMol/L] 141 mMol/L 25 (08/17/2012 00:15:00) Potassium Lvl [3.5-5.0 mMol/L] 4.1 mMol/L 26 (08/17/2012 00:15:00) Chloride Lvl [98-110 mMol/L] 100 mMol/L 27 (08/17/2012 00:15:00) CO2 Lvl [24-32 mMol/L] 29 mMol/L 28 (08/17/2012 00:15:00) AGAP [5-20 mMol/L] 16 mMol/L 29, 30 (08/17/2012 00:15:00) Glucose Lvl [70-100 mg/dL] 130 mg/dL 31 *HI* (08/17/2012 00:15:00) BUN Lvl [5-25 mg/dL] 17 mg/dL 32 (08/17/2012 00:15:00) Creatinine Lvl [0.60-1.20 mg/dL] 0.90 mg/dL 33, 34 (08/17/2012 00:15:00) GFR Non Afr Amer by MDRD [>60 ml/min/1.73m2] >60 ml/mi n/1.73m2 35 (08/17/2012 00:15:00) GFR Amer by MDRD [>60 ml/min/1.73m2] >60 ml/mi n/1.73m2 36 (08/17/2012 00:15:00) Calcium Lvl [8.5-10.5 mg/dL] 10.0 mg/dL 37 (08/17/2012 00:15:00) 25Performing Lab: [place] [address] * 26Performing Lab: [place] [address] * 27Performing Lab: [place] [address] * 28Performing Lab: [place] [address] * 29Result Comment: Anion Gap is calculated as follows: (Sodium + Potassium) - (Chloride + CO2) Hypoalbuminemia can mask a mildly increased anion gap. For every gram of decreased albumin there is a 2.5 mmol decrease in the gap 30Performing Lab: [place] [address] * 31Performing Lab: [place] [address] * 32Performing Lab: [place] [address] * 33Result Comment: Results are standardized to the internationally referenced IDMS (Isotope Dilution Mass Spectrometry) methodology effective 07/15/07. 34Performing Lab: Performed at [facility] * [address] [place] [address] * [place] [address] * 35Performing Lab: Performed at [facility] * [address] [place] [address] * [place] [address] * 36Performing Lab: Performed at [facility] * [address] [place] [address] * [place] [address] * 37Performing Lab: Performed at [facility] * [address] [place] [address] * [place] [address] * Urinalysis Most recent to oldest [Reference Range]: 1 UA Color YELLOW 38 (08/17/2012 01:00:00) Ur Clarity [CLEAR] CLOUDY 39 *ABN* (08/17/2012 01:00:00) UA Spec Grav [1.005-1.03] 1.027 40 (08/17/2012 01:00:00) UA pH [5.0-8.5] 5.0 41 (08/17/2012 01:00:00) UA Albumin [NEG] 1+ 42 *ABN* (08/17/2012 01:00:00) UA Glucose [NEG] NEGATIVE 43 (08/17/2012 01:00:00) UA Ketones [NEG] 2+ 44 *ABN* (08/17/2012 01:00:00) UA Bile [NEG] NEGATIVE 45 (08/17/2012 01:00:00) UA Blood [NEG] 3+ 46 *ABN* (08/17/2012 01:00:00) UA Nitrite [NEG] NEGATIVE 47 (08/17/2012 01:00:00) UA Urobilinogen [NORM] NORMAL 48 (08/17/2012 01:00:00) UA Leuk Est [NEG] 3+ 49 *ABN* (08/17/2012 01:00:00) UA RBCs [OTO4 /hpf] 7 /hpf 50 *ABN* (08/17/2012 01:00:00) UA WBCs [OTO4 /hpf] 5 /hpf 51 *ABN* (08/17/2012 01:00:00) UA Bacteria [NEG] OCCASIONAL 52 *ABN* (08/17/2012 01:00:00) UA Squamous Epithelials [OTO4 /hpf] 1 /hpf 53 *ABN* (08/17/2012 01:00:00) UA Mucous [NS] 1+ 54 *ABN* (08/17/2012 01:00:00) 38Performing Lab: Performed at [facility] * [address] * [place] [address] * 39Performing Lab: Performed at [facility] * [address] * [place] [address] * 40Performing Lab: Performed at [facility] * [address] * [place] [address] * 41Performing Lab: Performed at [facility] * [address] * [place] [address] * 42Performing Lab: Performed at [facility] * [address] * [place] [address] * 43Performing Lab: Performed at [facility] * [address] * [place] [address] * 44Performing Lab: Performed at [facility] * [address] * [place] [address] * 45Performing Lab: Performed at [facility] * [address] * [place] [address] * 46Performing Lab: Performed at [facility] * [address] * [place] [address] * 47Performing Lab: Performed at [facility] * [address] * [place] [address] * 48Performing Lab: Performed at [facility] * [address] * [place] [address] * 49Performing Lab: Performed at [facility] * [address] * [place] [address] * 50Performing Lab: Performed at [facility] * [address] * [place] [address] * 51Performing Lab: Performed at [facility] * [address] * [place] [address] * 52Performing Lab: Performed at [facility] * [address] [place] [address] Place * [place] [address] * 53Performing Lab: Performed at [facility] * [address] [place] [address] Place * [place] [address] * 54Performing Lab: Performed at [facility] * [address] [place] [address] Place * [place] [address] * Body Fluid Testing Most recent to oldest [Reference Range]: 1 Ur POC NEGATIVE 55 (08/16/2012 23:55:00) 55Performing Lab: Resulted upon Order to [facility]
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
--- OUTSIDE RECORDS SUMMARY | 2019-12-27 17:32 | XMS REPORT | Continuity of Care Document ---
Author Author BRAINMODESTA BRAIN Address Unknown Phone Unavailable Care Team Providers Care Product Design Specialist Name Role Phone BRAIN Unavailable Unavailable Problems Problem Status Onset Date Classification Date Reported Comments Source DEHYDRATION Active 08/21/2012 [facility] VOMITING ALONE Active 08/21/2012 [facility] DIARRHEA Active 08/21/2012 [facility] Medications Medication Details Route Status Patient Instructions Ordering Provider Order Date Source Zofran ODT 4 mg oral tablet, disintegrating = 1 tab, PO, q6hr, # 14 tab, 0 Refill(s) PO Ordered MOOK 08/17/2012 [facility] Allergies, Adverse Reactions, Alerts Substance Category Reaction Severity Reaction type Status Date Reported Comments Source No known allergies drug allergy Allergy Active [facility] Immunizations No Data Provided for This Section Results Order Name Results Value Reference Range Date Interpretation Comments Source Urinalysis UA Mucous 1+ NS 08/17/2012 ABN <sup>54</sup>Performing Lab: Performed a [facility] * [address] [place], [place] [address] [address] * [facility]A WBCs 5 /hpf OTO4 08/17/2012 ABN <sup>51</sup>Performing Lab: Performed a [facility] * [address] [place], [place] [address] * [place] [address] * [facility] UA Squamous Epithelials 1 /hpf OTO4 08/17/2012 ABN <sup>53</sup>[facility]: [facility] * [address] [place], [place] [address] [place] [address] * [facility]A RBCs 7 /hpf OTO4 08/17/2012 ABN <sup>50</sup>[facility]: [facility] * [address] * [place] [address] * [facility] UA Bacteria OCCAS IONAL NEG 08/17/2012 ABN <sup>52</sup>Performing Lab: Performed a [facility] * [address] * [place] [address] * [facility] UA pH 5.0 5.0 - 8.5 08/17/2012 <sup>41</sup>Performing Lab: Performed a [facility] * [address] * [place] [address] * [facility] Urinalysis UA Spec Grav 1.027 1.005 - 1.03 08/17/2012 <sup>40</sup>Performing Lab: Performed a [facility] * [address] * [place] [address] * [facility]A Nitrite NEGAT AUGUSTUS NEG 08/17/2012 <sup>47</sup>Performing Lab: Performed a [facility] * [address] * [place] [address] * [facility]A Leuk Est 3+ NEG 08/17/2012 ABN <sup>49</sup>Performing Lab: Performed a [facility] * [address] * [place] [address] * [facility]A Urobilinogen ARIES L NORM 08/17/2012 <sup>48</sup>Performing Lab: Performed a [facility] * [address] * [place] [address] * [facility] UA Blood 3+ NEG 08/17/2012 ABN <sup>46</sup>Performing Lab: Performed a [facility] * [address] * [place] [address] * [facility] Ur Clarity CLOUDY CLEAR 08/17/2012 ABN <sup>39</sup>Performing Lab: Performed a [facility] * [address] * [place] [address] * [facility] Color YELLOW 08/17/2012 <sup>38</sup>Performing Lab: Performed a [facility] * [address] * [place] [address] * [facility]A Glucose NEGAT AUGUSTUS NEG 08/17/2012 <sup>43</sup>Performing Lab: Performed a [facility] * [address] * [place] [address] * [facility] Urinalysis UA Bile NEGATIVE NEG 08/17/2012 <sup>45</sup>Performing Lab: Performed a [facility] * [address] * [place] [address] * [facility] Urinalysis UA Albumin 1+ NEG 08/17/2012 ABN <sup>42</sup>Performing Lab: Performed a [facility] * [address] * [place] [address] * [facility] Urinalysis UA Ketones 2+ NEG 08/17/2012 ABN <sup>44</sup>Performing Lab: Performed a [facility] * [address] * [place] [address] * [facility] Chemistry GFR Non Afr Amer by MDRD > 60 ml/min/1.73m2 >60 08/17/2012 <sup>35</sup>Performing Lab: [facility] * [address] * [place] [address] * [facility] Chemistry Creatinine Lvl 0.90 m g/dL 0.60 - 1.20 08/17/2012 <sup>34</sup>Performing Lab: Performed a [facility] * [address] * [place] [address] * [facility] [place] [facility] Calcium Lvl 10.0 m g/dL 8.5 - 10.5 08/17/2012 <sup>37</sup>Performing Lab: Performed a t [facility] * [address] * [place] [address] * [facility] [place] Chemistry GFR Amer by MDRD > 60 ml/min/1.73m2 >60 08/17/2012 <sup>36</sup>Performing Lab: [facility]formed at [facility] * [address] * [place] [address] * [facility] [place] Chemistry CO2 Lvl 29 mMol/L 24 - 32 08/17/2012 <sup>28</sup>Performing Lab: Performed a t [facility] * [address] * [place] [address] * [facility] [place] Chemistry AGAP 16 mMol/L 5 - 20 08/17/2012 <sup>30</sup>Performing Lab: Performed a t [facility] * [address] * [place] [address] * [facility] [place] Chemistry Chloride Lvl 100 mM ol/L 98 - 110 08/17/2012 <sup>27</sup>Performing Lab: Performed a t [facility] * [address] * [place] [address] * [facility] [place] Chemistry Glucose Lvl 130 mg /dL 70 - 100 08/17/2012 HI <sup>31</sup>Performing Lab: Performed a t [facility] * [address] * [place] [address] * [facility] [place] Chemistry BUN Lvl 17 mg/dL 5 - 25 08/17/2012 <sup>32</sup>Performing Lab: Performed a t [facility] * [address] * [place] [address] * [facility] [place] Chemistry Sodium Lvl 141 mM ol/L 135 - 145 08/17/2012 <sup>25</sup>Performing Lab: Performed a t [facility] * [address] * [place] [address] * [facility] Chemistry Potassium Lvl 4.1 mM ol/L 3.5 - 5.0 08/17/2012 <sup>26</sup>Performing Lab: Performed a t [facility] * [address] * [place] [address] * [facility] Hematology Abs Eosinophil Cnt 0.00 x10 3/MM3 0.00 - 0.50 08/17/2012 <sup>23</sup>Performing Lab: Performed at [facility] * [address] * [place] [address] * [facility] Hematology Abs Monocyte Cnt 0.41 x10 3/MM3 0.00 - 0.80 08/17/2012 <sup>22</sup>Performing Lab: Performed at [facility] * [address] * [place] [address] * [facility] Hematology Abs Lymphocyte Cnt 0.41 x10 3/MM3 1.00 - 4.80 08/17/2012 LOW <sup>21</sup>Performing La b: Performed at [facility] * [address] * [place] [address] * [facility] Hematology Abs Band Cnt 0.55 x10 3/MM3 0.00 - 0.70 08/17/2012 <sup>20</sup>Performing Lab: Performed a t [facility] * [address] * [place] [address] * [facility] Hematology Abs Neutrophil Cnt 12.37 x10 3/MM3 1.50 - 7.50 08/17/2012 HI <sup>19</sup>Performing Lab : Performed at [facility] * [address] * [place] [address] * [facility] [place] Hematology Basophils 0.0 % 0 - 2 08/17/2012 <sup>18</sup>Performing Lab: Performed a [facility] * [address] * [place] [address] * [facility] [place] Hematology Eosinophils 0.0 % 0 - 5 08/17/2012 <sup>17</sup>Performing Lab: Performed a [facility] * [address] * [place], [place] [address] * [facility] Monocytes 3.0 % 1 - 15 08/17/2012 <sup>16</sup>Performing Lab: Performed a [facility] * [address] * [place] [address] * [facility] Hemat[facility] Lymphocytes 3.0 % 20.5 - 45.0 08/17/2012 LOW <sup>15</sup>Performing Lab: Performed a [facility] * [address] * [place] [address] * [facility]emat[facility] Bands 4.0 % 0 - 12 08/17/2012 <sup>14</sup>Performing Lab: Performed a [facility] * [address] * [place] [address] * [facility] Hematology Neutrophils 90.0 % 50.0 - 70.0 08/17/2012 HI <sup>13</sup>Performing Lab: Performed a [facility] * [address] * [place] [address] * [facility] [place] [facility]ematology Abs Basophil Cnt 0.00 x10 3/MM3 0.00 - 0.20 08/17/2012 <sup>24</sup>Performing Lab: [facility]formed at [facility] * [address] * [place] [address] * [facility] [place] Hematology Hgb 17.7 gm/dL 11.4 - 14.7 08/17/2012 HI <sup>5</sup>Performing Lab: Performed at [facility] * [address] * [place] [address] * [facility] Hemat[facility] MCV 86.6 fL 80.5 - 99.8 08/17/2012 <sup>7</sup>Performing Lab: Performed at [facility] * [address] * [place] [address] * [facility]emat[facility] Hct 49.8 % 34.3 - 45.5 08/17/2012 HI <sup>6</sup>Performing Lab: Performed at [facility] * [address] * [place] [address] * [facility]emat[facility] MPV 9.5 fL 9.7 - 12.5 08/17/2012 LOW <sup>12</sup>Performing Lab: Performed a t [facility] * [address] * [place] [address] * [facility] RDW 12.4 % 11.7 - 14.7 08/17/2012 <sup>10</sup>Performing Lab: Performed a t [facility] * [address] * [place] [address] * [facility] Platelet Count 187 x 10 3/MM3 139 - 361 08/17/2012 <sup>11</sup>Performing Lab: Performed a t [facility] * [address] * [place], [place] [address] * [facility] Hemat[facility] MCH 30.8 picogram 26.8 - 33.0 08/17/2012 <sup>8</sup>Performing Lab: Performed at [facility] * [address] * [place], [place] [address] * [facility] [place] Hematology MCHC 35.5 % 31.0 - 35.4 08/17/2012 HI <sup>9</sup>Performing Lab: Performed at [facility] * [address] * [place] [address] * [facility] Hematology RBC 5.75 x10 6/MM 3 3.75 - 5.00 08/17/2012 HI <sup>4</sup>Performing Lab: Performed at [facility] * [address] [place] [address] Place * [place] [address] * [facility] Hematology Abs Immature Granulocyte Cnt 0.81 x10 3/MM3 0.00 - 0.14 08/17/2012 HI <sup>3</sup>Performing Lab: Performed at [facility] * [address] [place] [address] Place * [place] [address] * [facility] Hematology Immature Granulocytes 5.9 % <1.0 08/17/2012 HI <sup>2</sup>Performing Lab: Performed at [facility] * [address] [place] [address] Place * [place] [address] * [facility] Hematology WBC 13.74 x10 3/M M3 4.40 - 10.50 08/17/2012 HI <sup>1</sup>Performing Lab: Performed at [facility] * [address] [place] [address] Place * [place] [address] * [facility] Body Fluid Testing Ur POC NEGATIVE 08/17/2012 <sup>55</sup>Performing Lab: Resulted up on Order to [facility] Pathology Reports No Data Provided for This Section Diagnostic Reports No Data Provided for This Section Consultation Notes No Data Provided for This Section Discharge Summaries No Data Provided for This Section History and Physicals No Data Provided for This Section Vital Signs Vital Sign Value Date Comments Source Pain Level 5 (08/17/2012 00:20 :00) 08/17/2012 [facility] Pain Type Acute (08/17/2012 00 :20:00) 08/17/2012 [facility] Pain Location Lower ( 3 00:20:00) 08/17/2012 [facility] Pain Site Abdomen (08/17/2012 00:20:00) 08/17/2012 [facility] Pain Non Verbal Behaviors Rest less (08/17/2012 00:20:00) 08/17/2012 [facility] Detailed Pain Description Sulema mtz (08/17/2012 00:20:00) 08/17/2012 [facility] Respiratory Rate Spontaneous 1 8 br/min 08/17/2012 [facility] Heart Rate 123 bpm 08/17/2012 [facility] Temperature Oral 98.2 [degF] 08/17/2012 [facility] Height [facility] 170.18 cm 08/17/2012 [facility] Height in inches 67.00 [in_i] 08/17/2012 [facility] Estimated Weight in lbs 140.0 [lb_ap] 08/17/2012 [facility] Estimated Weight in kg 63.502 kg 08/17/2012 [facility] O2 Saturation 100 % 08/17/2012 [facility] Blood Pressure NBP MAP 85 mm[H g] 08/17/2012 [facility] Diastolic Blood Pressure NBP 7 1 mm[Hg] 08/17/2012 [facility] Systolic Blood Pressure NBP 11 3 mm[Hg] 08/17/2012 [facility] Medication Dose Weight (Verify UOM) 63.502 kg 08/17/2012 [facility] Encounters Location Location Details Encounter Type Encounter Number Reason For Visit Attending Provider ADM Date DC Date Status Source [facility] [id number] NATHANAEL [place] 08/16/2012 08/17/2012 [facility] Procedures No Data Provided for This Section Plan of Care No Data Provided for This Section Social History No Data Provided for This Section Assessment and Plan No Data Provided for This Section Family History No Data Provided for This Section Advance Directives No Data Provided for This Section Functional Status No Data Provided for This Section
--- OUTSIDE RECORDS SUMMARY | 2019-12-27 17:32 | XMS REPORT ---
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 Phone KYM TANNER Unavailable Allergies Normalized Allergy Reported Date of Reaction(s) Care Provider Facility Allergy Type classification allergen Allergy Onset Drug Allergy Lactose Lactose 06-23-2018 - lactose KYM KRUSE N , Not Available (16 sources.) Translations: ([id number]) (39331) Translations: [ lactose [ Allergy to ([id number])] Substance] Medications Medication Ingredient Drug Dose Dates Status Sig Sig Care Class(es) (Normalized) (Original) Provid er no Acetaminoph Opioid 06-26-20 Complete take 50 Acetaminophe Michae information en / Agonist 18 d tablets by n/Hydrocodon l S (2 HYDROcodone mouth every e Bitart Fenech sources.) six hours as (Lortab 7.5 (no needed for Mg Tablet) 1 phone) pain Ea Tablet 2 Ea ORAL Every 6 Hours as needed for Pain-See Instructions 50 Tab 06/26/18 no Acetaminoph no 11-16-19 Complete take 1 Acetaminophe (no information en/Codeine information 15 d tablet by n/Cod eine phone) (3 Phosphate mouth every Phosphate sources.) (Tylenol-Co four hours (Tylenol-Cod deine #3 as needed eine #3 Tablet) 1 Tablet) 1 Tab Tablet, Tab Tablet, 1 Tab Oral 1 Tab Oral Every 4HRS as needed Discontinued no Biotin no 2500 Complete take 1 Biotin 2,500 (no information information ug d capsule by Mcg Capsul e phone) (3 mouth once 2,500 Mcg sources.) daily ORAL Daily docusate Docusate no 100 mg 06-26-20 Complete take 1 Docusat e Michae sodium 100 information 18 d capsule by Sodium 100 l S mg oral mouth twice Mg Capsule Fenech capsule (2 daily as 100 Mg ORAL (no sources.) needed for Twice A Day phone) constipation as needed for Constipation -1ST Line 40 Cap 06/26/18 no Folic no 06-23-20 Complete no Folic (no information Acid/Multiv information 18 d information Ac id/Multivi phone) (3 its-Min/Lut ts-Min/Lut sources.) (Multi-Rossana (Multi-Vitam min in Gummies) Gummies) 1 1 Each Each Tab.chew, 1 Tab.chew, 1 Tab Oral Tab Oral Daily Discontinued no Ibuprofen no 600 mg 11-16-19 Complete take 1 Ibuprofe n (no information (Motrin) information 15 d tablet by (Motrin ) 600 phone) (3 600 Mg Tab, mouth every Mg Tab, 600 sources.) 600 Mg Oral six hours as Mg Oral needed Every 6 Hours as needed Discontinued levETIRAcet levETIRAcet no 500 mg Complete take 1 Levetirace ta (no am 500 mg am information d tablet by m (Crzyfish) phone) oral tablet mouth twice 500 Mg (3 daily Tablet 500 sources.) Mg ORAL Twice A Day no Multivits,C no Complete take 1 Multivits,Ca (n o information a,Minerals/ information d tablet by ,Kory ls/Ir phone) (3 Iron/Fa mouth once on/Fa sources.) (Women's daily, then (Women's Daily take 1 Daily Caplet) 1 tablet by Caplet) 1 Each Tablet mouth once Each Tablet daily 1 Each ORAL Daily no no 11-16-19 Complete no (no information Vits information 15 d information Vits phone) (3 W-Ca,Fe,Fa( W-Ca,Fe,Fa( sources.) <1MG) Daily ( Discontinued Vitamins) 1 Each Tablet, 1 Each Oral simethicone Simethicone no 3200 06-26-20 Complete take 40 m g Simethicone Michae 80 mg information mg 18 d by mouth 80 Mg l S chewable three times Tab.chew 40 Fenech tablet (2 daily as Mg ORAL (no sources.) needed Three Times phone) A Day as needed for Indigestion 2ND Line 40 Tab 06/26/18 Problems Active Problems Problem Normalized Date Last Normalized Normalized Provider Fa cility Classification Problem(s) Recorded Problem Problem Sta tus Duration Other female Abnormal Chronic Active DILSHAD AMRITA Not A vailable genital uterine and , DO (34910) disorders (3 vaginal sources.) bleeding, unspecified Residual Acquired Episodic Active KELLY ZEPEDA Not Availab le codes; absence of (07321) unclassified both cervix (3 sources.) and uterus Other upper Acute upper Episodic Active KYM TANNER , Not Available respiratory respiratory MD (53660) infections (3 infections of sources.) unspecified site Allergic Allergy status Episodic Active KELLY ZEPEDA Not A vailable reactions (3 to other (62213) sources.) drugs, medicaments and biological substances status Inflammation, Conjunctivitis Episodic Active KYM TANNER , Not Available infection of , unspecified MD (50370) eye (3 sources.) Other female 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, , DO (28046) disorders (3 unspecified sources.) Immunizations Encounter for Episodic Active DILSHAD MARISAECH Not Available and screening screening for , DO (66199) for infectious other disease (2 bacterial sources.) diseases Epilepsy; Epilepsy, Chronic Active DILSHAD MARISAECH Not Amada ilable convulsions (4 unspecified, , DO (86520) sources.) not intractable, without status epilepticus Residual Family history Episodic Active KELLY ZEPEDA Not A vailable codes; of ischemic (85947) unclassified heart disease (3 sources.) and other diseases of the circulatory system Residual Family history Episodic Active DILSHAD FENECH No t Available codes; of malignant , DO (20003) unclassified neoplasm of (6 sources.) other genital organs Fever of Fever, Episodic Active KELLY ZEPEDA Not Availab le unknown origin unspecified (99627) (3 sources.) Other female Mild cervical Episodic Active DILSHAD FENECH Not Available genital dysplasia , DO (27290) disorders (4 sources.) Other Other long Episodic Active DILSHAD FENECH Not Av ailable aftercare (4 term (current) , DO (72400) sources.) drug therapy Cancer of Personal Episodic Active PETER ZEPEDA Not Availab le cervix (3 history of (52877) sources.) malignant neoplasm of cervix uteri Other Personal Episodic Active PETER ZEPEDA Not Availab le gastrointestin history of (11443) al disorders other diseases (3 sources.) of the digestive system Genitourinary Personal Episodic Active PETER ZEPEDA Not Amada ilable symptoms and history of (14599) ill-defined other diseases conditions (3 of urinary sources.) system Benign Subserosal Episodic Active DILSHAD CROWE Not Av ailable neoplasm of leiomyoma of , DO (72184) uterus (4 uterus sources.) Unclassified no information no information Active KYM JACOBSEN [facility] (12 sources.) [address] [facility] (15883) Past or Other Problems Problem Normalized Date Last Normalized Normalized Provider Fa cility Classification Problem(s) Recorded Problem Problem Sta tus Duration Abdominal pain Pelvic and no information no information DILSHAD CROWE Not Available (3 sources.) perineal pain , DO (88184) Contraceptive Presence of Episodic Completed DILSHAD CROWE N ot Available and (intrauterine) , DO (39694) procreative contraceptive management (4 device sources.) Ovarian cyst Unspecified no information no information DILSHAD CROWE Not Available (4 sources.) ovarian cyst, , DO (91239) right side Urinary tract Urinary tract no information no information DEEPALI TANNER [place] [facility] infections (1 infections [address] [facility] source.) Hospital (63659) Procedures Procedure Normalized Procedure Procedure Result Performer Facility Date 07-07-2018 Computed tomography of no information KELLY ZEPEDA [place] [facility] abdomen and pelvis [facility] (07402) with contrast 06-26-2018 Laparoscopic no information DILSHAD CROWE [facility] hysterectomy [place] ([id number]) 06-26-2018 Laps total hysterect no information DILSHAD GREEN H [place] [facility] 250 gm/< w/rmvl [facility] (70625) tube/ovary 05-26-2018 Pelvic echography no information DILSHAD CROWE [facility] (84784) Immunizations Normalized Immunization Date Notes Care Provider Facili ty Immunization vaccine no information KYM TANNER [address] [facility] Translations: [ [place] (73714) vaccine] Results Test Name Value Interpretation Reference Range Date Time Fa cility (Normalized) (Normalized) (Medline Reference) venous blood hemoglobin measurement (mass/volume) on 2018-07-07 Hemoglobin mass 14.2 g/dL (no code) 12.1 - 17.2 g/dL [place] [facility] conc (Bld) [facility] (95169) urine urobilinogen measurement by automated test strip (mass/volume) on 2018-07-07 Urobilinogen NORMAL (no code) [place] [facility] Test strip Qn [facility] (U) (38201) urine total bilirubin detection by test strip on 2018-07-07 Bilirubin Ql (U) Negative (no code) [place] [facility] (10706) urine protein assay by test strip, semi-quantitativ e on 2018-07-07 Protein Test 1+ (*) [place] [facility] strip Ql (U) [facility] (69286) urine ph measurement by test strip on 2018-07-07 pH Test strip 5 [pH] (no code) 4.6 - 8 [pH] [place] [facility] (U) [facility] (49254) urine nitrite detection by test strip on 2018-07-07 Nitrite Test Negative (no code) [place] [facility] strip Ql (U) [facility] (49340) urine leukocyte esterase detection by dipstick on 2018-07-07 Leukocyte 1+ (*) [place] [facility] esterase Test [facility] strip Ql (U) (52019) urine ketones detection by automated test strip on 2018-07-07 Ketones Negative (no code) [place] [facility] Automated test [facility] strip Ql (U) (79614) urine glucose detection by automated test strip on 2018-07-07 Glucose Negative (no code) [place] [facility] Automated test [facility] strip Ql (U) (47579) urine color determination on 2018-07-07 Color Nom (U) YELLOW (no code) [place] [facility] (34213) urine clarity determination on 2018-07-07 Clarity Nom (U) CLEAR (no code) [place] [facility] (99945) squamous epithelial cells detection in urine sediment by light microscopy on 2018-07-07 Epithelial no information (*) [place] [facility] cells.squamous [facility] LM Ql (Urine (37604) sed) specific gravity of urine by test strip on 2018-07-07 Specific gravity 1.025 (*) [place] [facility] Relative Density [facility] (U) (07411) serum or plasma urea nitrogen/creatin ine mass ratio on 2018-07-07 Urea 9 mg/mg (no code) 6 - 22 mg/mg [place] [facility] a nitrogen/Creatin [facility] ine mass ratio (65548) serum or plasma urea nitrogen measurement (mass/volume) on 2018-07-07 Urea nitrogen 8 mg/dL (no code) 7 - 20 mg/dL [place] [facility] mass conc [facility] (86105) serum or plasma total bilirubin measurement (mass/volume) on 2018-07-07 Bilirubin mass 0.4 mg/dL (no code) 0.1 - 1.2 mg/dL [facility] [facility] (89650) serum or plasma sodium measurement (moles/volume) on 2018-07-07 Sodium molar 142 mmol/L (no code) 135 - 145 mmol/L [facility] (74804) serum or plasma protein measurement (mass/volume) on 2018-07-07 Protein mass 8.4 g/dL (H) 6.4 - 8.3 g/dL [place] [facility] (69565) serum or plasma potassium measurement (moles/volume) on 2018-07-07 Potassium molar 3.2 mmol/L (L) 3.7 - 5.2 mmol/L [facility] (52165) serum or plasma glucose measurement (mass/volume) on 2018-07-07 Glucose mass 87 mg/dL (no code) 60 - 125 mg/dL [place] [facility] (72393) serum or plasma creatinine measurement with calculation of estimated glomerular filtration rate on 2018-07-07 GFR/1.73 sq M no information (no code) [place] [facility] non-blacks MDRD (49515) vol rate/area (S/P/Bld) serum or plasma creatinine measurement (mass/volume) on 2018-07-07 Creatinine mass 0.94 mg/dL (no code) [place] [facility] (02949) serum or plasma chloride measurement (moles/volume) on 2018-07-07 Chloride molar 102 mmol/L (no code) 95 - 106 mmol/L [facility] (95817) serum or plasma calcium measurement (mass/volume) on 2018-07-07 Calcium mass 10.2 mg/dL (H) 8.5 - 10.2 mg/dL [facility] (87684) serum or plasma aspartate aminotransferase measurement (enzymatic activity/volume) on 2018-07-07 AST enzyme 47 U/L (H) 10 - 34 U/L [place] [facility] act/[facility] (66256) serum or plasma anion gap determination (moles/volume) on 2018-07-07 Anion gap 3 15 mmol/L (H) 3 - 11 mmol/L [place] [facility] ia molar conc [facility] (07863) serum or plasma alkaline phosphatase measurement (enzymatic activity/volume) on 2018-07-07 ALP enzyme 126 U/L (no code) 44 - 147 U/L [place] [facility] a act/vol [facility] (63514) serum or plasma albumin measurement (mass/volume) on 2018-07-07 Albumin mass 4.9 g/dL (H) 3.4 - 5.4 g/dL [place] [facility] conc [facility] (17431) serum or plasma alanine aminotransferase measurement (enzymatic activity/volume) on 2018-07-07 ALT enzyme 77 U/L (H) 4 - 40 U/L [place] [facility] act/vol [facility] (17498) mucus detection in urine sediment by light microscopy on 2018-07-07 Mucus LM Ql LARGE (*) [place] [facility] (Urine sed) [facility] (05530) erythrocytes detection in urine sediment by light microscopy on 2018-07-07 RBC LM Ql (Urine 1+ (*) [place] [facility] sed) [facility] (30603) crystals detection in urine sediment by light microscopy on 2018-07-07 Crystals LM Ql NONE (no code) [place] [facility] (Urine sed) [facility] (46670) complete urinalysis with reflex to culture on 2018-07-07 Urinalysis NO (no code) [place] [facility] complete W [facility] Reflex Culture (35184) panel - Urine casts detection in urine sediment by light microscopy on 2018-07-07 Casts LM Ql NONE (no code) [place] [facility] (Urine sed) [facility] (22656) carbon dioxide on 2018-07-07 CO2 molar conc 25 mmol/L (no code) 23 - 29 mmol/L [place] [facility] (86049) blood neutrophils automated count (number/volume) on 2018-07-07 Neutrophils Auto 7.4 10*3/uL (no code) 1.7 - 7 10*3/uL [facility] #/vol (Bld) [facility] (32499) blood monocytes/100 leukocytes on 2018-07-07 Monocytes/100 6 % (no code) 2 - 8 % [place] [facility] a WBC Auto (Bld) [facility] (72014) blood monocytes automated count (number/volume) on 2018-07-07 Monocytes Auto 0.5 10*3/uL (no code) 0.3 - 0.9 [place] [facility] ia #/vol (Bld) 10*3/uL [facility] (26885) blood lymphocytes automated count (number/volume) on 2018-07-07 Lymphocytes Auto 1.4 10*3/uL (no code) 0.9 - 2.9 [place] [facility] #/vol (Bld) 10*3/uL [facility] (77544) blood leukocytes automated count (number/volume) on 2018-07-07 WBC Auto #/vol 9.6 10*3/uL (no code) 3.5 - 10.5 [place] [facility] ia (Bld) 10*3/uL [facility] (67189) blood hematocrit (volume fraction) on 2018-07-07 Hematocrit Auto 42 % (no code) 36.1 - 50.3 % [facility] [facility] Volume Fraction [facility] ([facility]) (18600) blood erythrocytes automated count (number/volume) on 2018-07-07 RBC Auto #/vol 4.83 10*6/uL (no code) 4.2 - 6.1 [place] [facility] (Bld) 10*6/uL [facility] (56480) bacteria detection in urine sediment by light microscopy on 2018-07-07 Bacteria LM Ql FEW (*) [place] [facility] (Urine sed) [facility] (05469) automated urine sediment leukocyte count by microscopy (number/high power field) on 2018-07-07 WBC LM.HPF no information (no code) [place] [facility] #/area (Urine [facility] sed) (85914) automated urine sediment erythrocyte count by microscopy (number/high power field) on 2018-07-07 RBC LM.HPF RARE (no code) [place] [facility] #/area (Urine [facility] sed) (53206) automated erythrocyte mean corpuscular volume on 2018-07-07 MCV Auto Entitic 87 fL (no code) 80 - 100 fL [facility] volume (RBC) [facility] (52022) automated erythrocyte mean corpuscular hemoglobin concentration measurement (mass/volume) on 2018-07-07 MCHC Auto mass 34 g/dL (no code) 32 - 36 g/dL [place] [facility] conc (RBC) [facility] (54525) automated erythrocyte mean corpuscular hemoglobin (mass per erythrocyte) on 2018-07-07 MCH Auto Entitic 29 pg (no code) 27 - 31 pg [place] [facility] mass (RBC) [facility] (10114) automated erythrocyte distribution width ratio on 2018-07-07 Erythrocyte 12.2 % (no code) 11.6 - 14.6 % [place] [facility] ia distribution [facility] width Auto Ratio (66825) (RBC) automated eosinophil count on 2018-07-07 Eosinophils Auto 0.3 10*3/uL (no code) 0.05 - 0.5 [place] [facility] #/vol (Bld) 10*3/uL [facility] (59704) automated blood platelet mean volume measurement on 2018-07-07 Platelet mean 8.1 fL (no code) 7.2 - 11.7 fL [place] [facility] volume Auto [facility] Entitic volume (49652) (Bld) automated blood platelet count (count/volume) on 2018-07-07 Platelets Auto 466 10*3/uL (H) 150 - 450 [place] [facility] ia #/vol (Bld) 10*3/uL [facility] (51158) automated blood neutrophils/100 leukocytes on 2018-07-07 Neutrophils/100 77 % (H) 40 - 60 % [place] [facility] WBC Auto (d) [facility] (06020) automated blood lymphocytes/100 leukocytes on 2018-07-07 Lymphocytes/100 14 % (no code) 20 - 40 % [place] [facility] WBC Auto (d) [facility] (43333) automated blood eosinophils/100 leukocytes on 2018-07-07 Eosinophils/100 3 % (no code) 1 - 4 % [place] [facility] WBC Auto (d) [facility] (72551) automated blood basophils/100 leukocytes on 2018-07-07 Basophils/100 1 % (no code) 0.5 - 1 % [place] [facility] a WBC Auto (d) [facility] (30600) automated blood basophil count (count/volume) on 2018-07-07 Basophils Auto 0.1 10*3/uL (no code) 0 - 0.3 10*3/uL [place] [facility] #/vol (Bld) [facility] (72160) venous blood hemoglobin measurement (mass/volume) on 2018-06-23 Hemoglobin mass 13.5 g/dL (no code) 12.1 - 17.2 g/dL [facility] [place] conc (Bld) [facility] () methicillin resistant staphylococcus aureus (mrsa) screening culture on 2018-06-23 MRSA DNA MRSA not (no code) [facility] [place] SO+probe Ql isolated [facility] blood neutrophils automated count (number/volume) on 2018-06-23 Neutrophils Auto 3.7 10*3/uL (no code) 1.7 - 7 10*3/uL [facility] [place] #/vol (Bld) [facility] (47748) blood monocytes/100 leukocytes on 2018-06-23 Monocytes/100 6 % (no code) 2 - 8 % [facility] [place] WBC Auto (Bld) [facility] () blood monocytes automated count (number/volume) on 2018-06-23 Monocytes Auto 0.3 10*3/uL (no code) 0.3 - 0.9 [facility] [place] #/vol (Bld) 10*3/uL [facility] (43256) blood lymphocytes automated count (number/volume) on 2018-06-23 Lymphocytes Auto 1.5 10*3/uL (no code) 0.9 - 2.9 [facility] [place] [facility] #/vol (Bld) 10*3/uL [facility] (57586) blood leukocytes automated count (number/volume) on 2018-06-23 WBC Auto #/vol 5.8 10*3/uL (no code) 3.5 - 10.5 [facility] [place] (Bld) 10*3/uL [facility] (55048) blood hematocrit (volume fraction) on 2018-06-23 Hematocrit Auto 40 % (no code) 36.1 - 50.3 % [facility] isti Volume Fraction [facility] ([facility]) [place] (62022) blood erythrocytes automated count (number/volume) on 2018-06-23 RBC Auto #/vol 4.47 10*6/uL (no code) 4.2 - 6.1 [facility] [place] i (Bld) 10*6/uL [facility] () automated erythrocyte mean corpuscular volume on 2018-06-23 MCV Auto Entitic 90 fL (no code) 80 - 100 fL Via [place] volume (RBC) [facility] () automated erythrocyte mean corpuscular hemoglobin concentration measurement (mass/volume) on 2018-06-23 MCHC Auto mass 34 g/dL (no code) 32 - 36 g/dL [facility] [place] [facility] conc (RBC) [facility] (05011) automated erythrocyte mean corpuscular hemoglobin (mass per erythrocyte) on 2018-06-23 MCH Auto Entitic 30 pg (no code) 27 - 31 pg [facility] [place] [facility] mass (RBC) [facility] (16353) automated erythrocyte distribution width ratio on 2018-06-23 Erythrocyte 12.8 % (no code) 11.6 - 14.6 % [facility] distribution Hospital width Auto Ratio [place] (RBC) (64403) automated eosinophil count on 2018-06-23 Eosinophils Auto 0.2 10*3/uL (no code) 0.05 - 0.5 [facility] [place] [facility] #/vol (Bld) 10*3/uL [facility] (19557) automated blood platelet mean volume measurement on 2018-06-23 Platelet mean 8.9 fL (no code) 7.2 - 11.7 fL [facility] volume Auto Hospital Ent[facility] volume [place] (Bld) (51289) automated blood platelet count (count/volume) on 2018-06-23 Platelets Auto 241 10*3/uL (no code) 150 - 450 [facility] [place] #/vol (Bld) 10*3/uL [facility] (99125) automated blood neutrophils/100 leukocytes on 2018-06-23 Neutrophils/100 64 % (no code) 40 - 60 % [facility] [place] i WBC Auto (Bld) [facility] (13032) automated blood lymphocytes/100 leukocytes on 2018-06-23 Lymphocytes/100 26 % (no code) 20 - 40 % [facility] [place] i WBC Auto (Bld) [facility] (37323) automated blood eosinophils/100 leukocytes on 2018-06-23 Eosinophils/100 3 % (no code) 1 - 4 % [facility] [place] i WBC Auto (Bld) [facility] (42590) automated blood basophils/100 leukocytes on 2018-06-23 Basophils/100 1 % (no code) 0.5 - 1 % [facility] [place] WBC Auto (Bld) [facility] (10999) automated blood basophil count (count/volume) on 2018-06-23 Basophils Auto 0.0 10*3/uL (no code) 0 - 0.3 10*3/uL Via [facility] #/vol (Bld) [facility] (90774) Vital Signs The data below is from unstructured sources Vital Response Date/Time Temperature (Fahrenheit) 98.8 degree s F (97.6 - 99.5) Temperature (Calculated Celsius) 37. 47080 degrees C (36.4 - 37.5) Temperature Source Temporal Pulse Rate (adult) 90 bpm (60 - 90) Respiratory Rate 20 bpm (12 - 24) O2 Sat by Pulse Oximetry 100 % (88 - 100) Blood Pressure 102/70 mm Hg Pain Pain Intensity 0 Height (Feet) 5 feet Height (Inches) 6.00 inches Height (Calculated Centimeters) 167. 768256 cm Weight (Pounds) 155 pounds Weight (Calculated Grams) 50522.818 gm Weight (Calculated Kilograms) 70.306 818 kilograms Calculated BMI 25.01 Vital Response Date/Time Pulse Rate (adult) 73 bpm (60 - 90) 06/23/2018 2:23pm O2 Sat by Pulse Oximetry 100 % (88 - 100) 06/23/2018 2:23pm Blood Pressure 114/80 mm Hg 06/23/2018 2:23pm Blood Pressure Mean 91 mm Hg (65 - 110) 06/23/2018 2:23pm Pain Numeric Pain Scale 0-No Pain 06/23/2018 2:23pm Height (Feet) 5 feet 2:07pm Height (Inches) 6.00 inches 06/23/2018 2:07pm Height (Calculated Centimeters) 167. 157741 cm 06/23/2018 2:07pm Weight (Pounds) 159 pounds 06/23/2018 2:07pm Weight (Ounces) 0.0 oz 1 08/23/2017 2:07pm Weight (Calculated Grams) 23399.19 gm 06/23/2018 2:07pm Weight (Calculated Kilograms) 72.121 188 kilograms 06/23/2018 2:07pm Calculated BMI 25.7 05/30 2:07pm Vital Response Date/Time Temperature (Fahrenheit) 97.9 degree s F (97.6 - 99.5) 06/27/2018 9:40am Temperature (Calculated Celsius) 36. 72049 degrees C (36.4 - 37.5) 06/27/2018 9:40am Temperature Source Temporal 06/27/2018 9:40am Pulse Rate (adult) 73 bpm (60 - 90) 06/27/2018 9:40am Respiratory Rate 18 bpm (12 - 24) 06/27/2018 9:40am O2 Sat by Pulse Oximetry 98 % (88 - 100) 06/27/2018 9:40am Blood Pressure 112/63 mm Hg 06/27/2018 9:40am Blood Pressure Mean 79 mm Hg (65 - 110) 06/27/2018 9:40am Pain Numeric Pain Scale 2 9:40am Height (Feet) 5 feet 6:40am Height (Inches) 6.00 inches 06/26/2018 6:40am Height (Calculated Centimeters) 167. 912860 cm 06/26/2018 6:40am Weight (Pounds) 159 pounds 06/26/2018 6:40am Weight (Ounces) 0.0 oz 1 08/26/2017 6:40am Weight (Calculated Grams) 71661.19 gm 06/26/2018 6:40am Weight (Calculated Kilograms) 72.121 188 kilograms 06/26/2018 6:40am Calculated BMI 25.7 05/30 6:40am Vital Response Date/Time Temperature (Fahrenheit) 97.5 degree s F (97.6 - 99.5) 07/07/2018 7:52pm Temperature (Calculated Celsius) 36. 19015 degrees C (36.4 - 37.5) 07/07/2018 7:52pm Temperature Source Tympanic 07/07/2018 7:52pm Pulse Rate (adult) 95 bpm (60 - 90) 07/07/2018 7:52pm Respiratory Rate 16 bpm (12 - 24) 07/07/2018 7:52pm O2 Sat by Pulse Oximetry 98 % (88 - 100) 06/27/2018 9:40am Blood Pressure 123/84 mm Hg 07/07/2018 7:52pm Blood Pressure Mean 97 mm Hg (65 - 110) 07/07/2018 7:52pm Pain Numeric Pain Scale 0-No Pain 07/07/2018 7:52pm Height (Feet) 5 feet 04/2018 7:52pm Height (Inches) 4.00 inches 07/07/2018 7:52pm Height (Calculated Centimeters) 162. 374990 cm 07/07/2018 7:52pm Height Method Estimated 07/07/2018 7:52pm Weight (Pounds) 145 pounds 07/07/2018 7:52pm Weight (Ounces) 0.0 oz 1 08/26/2017 6:40am Weight (Calculated Grams) 26687.89 gm 07/07/2018 7:52pm Weight (Calculated Kilograms) 65.770 894 kilograms 07/07/2018 7:52pm Calculated BMI 25.7 05/30 6:40am Weight Method Estimated 07/07/2018 7:52pm Capillary Refill Capillary Refill Less Than 3 Seconds 07/07/2018 7:52pm Vital Response Date/Time Temperature (Fahrenheit) 97.5 degree s F (97.6 - 99.5) 07/07/2018 7:52pm Temperature (Calculated Celsius) 36. 78102 degrees C (36.4 - 37.5) 07/07/2018 7:52pm Temperature Source Tympanic 07/07/2018 7:52pm Pulse Rate (adult) 95 bpm (60 - 90) 07/07/2018 7:52pm Respiratory Rate 16 bpm (12 - 24) 07/07/2018 7:52pm O2 Sat by Pulse Oximetry 98 % (88 - 100) 06/27/2018 9:40am Blood Pressure 123/84 mm Hg 07/07/2018 7:52pm Blood Pressure Mean 97 mm Hg (65 - 110) 07/07/2018 7:52pm Pain Numeric Pain Scale 0-No Pain 07/07/2018 7:52pm Height (Feet) 5 feet 04/2018 7:52pm Height (Inches) 4.00 inches 07/07/2018 7:52pm Height (Calculated Centimeters) 162. 338499 cm 07/07/2018 7:52pm Height Method Estimated 07/07/2018 7:52pm Weight (Pounds) 145 pounds 07/07/2018 7:52pm Weight (Ounces) 0.0 oz 1 08/26/2017 6:40am Weight (Calculated Grams) 89926.89 gm 07/07/2018 7:52pm Weight (Calculated Kilograms) 65.770 894 kilograms 07/07/2018 7:52pm Calculated BMI 25.7 05/30 6:40am Weight Method Estimated 07/07/2018 7:52pm Capillary Refill Capillary Refill Less Than 3 Seconds 07/07/2018 7:52pm Interventions No Information Plan of Treatment The data below is from unstructured sources Discharge Date 11/17/14 9:00am Disposition 30 STILL A PATIENT Instructions/Education Provided DR. ERNESTO GALLEGOS Prescriptions See Medications Reginald smith Referrals CIRO (Unspecified) Reason(s) for Referral: 9:00 Care Plan and Goals FU with Dr. Hermilo smith in 1 week. Please call in cephalexin and polytrim eye drops. Discharge Date 06/23/18 2:35pm Prescriptions See Medication Section Discharge Date 06/27/18 9:55am Instructions/Education Provided Robo t-Assisted Surgery Hysterectomy, Abdominal or Laparoscopic Surgery Prescriptions See Medication Section Discharge Date 07/07/18 10:15pm Disposition 01 HOME, SELF-CARE Condition at Discharge Stable Instructions/Education Provided Naus ea and Vomiting, Adult Forms Provided Work Release Form Prescriptions See Medication Section Referrals KYM TANNER MD Order Date: Primary Care Physician Address: [address] [place] [address], [facility] [address] [place] [address] [phone] Additional Instructions/Education 1. Continue taking the Bactrim until it is finished 2. Use the nausea medication as needed 3. Return to ER for any concerns. All di scharge instructions reviewed with patient and/or family. Voiced understanding. Discharge Date 07/07/18 10:15pm Disposition 01 HOME, SELF-CARE Condition at Discharge Stable Instructions/Education Provided Naus ea and Vomiting, Adult Forms Provided Work Release Form Prescriptions See Medication Section Referrals KYM TANNER MD Order Date: Primary Care Physician Address: [facility], [address] [place] [address] [phone] Additional Instructions/Education 1. Continue taking the Bactrim until it is finished 2. Use the nausea medication as needed 3. Return to ER for any concerns. All di scharge instructions reviewed with patient and/or family. Voiced understanding. Goals No Information Social History No Information Functional Status The data below is from unstructured sourcesNo functional status results.No functional status information available.No functional status information available.No functional status information available.No functional status information available.No functional status information available.No functional status information available. Mental Status No Information Encounters Encounter Normalized Encounter Encounter Diagnosis Care [facility] [place] [facility] Organization Date Type 06-26-2018 Admission to day no information DILSHAD CROWE Wo rk no organization name - surgery Phone: 06-27-2018 DILSHAD CROWE 07-07-2018 Emergency department no information KELLY Hough APRN [facility] ANN no organization name - patient visit Work Phone: 07-07-2018 11-15-2014 Evaluation and no information no name no organ ization name - management of 11-17-2014 inpatient 05-26-2018 Patient encounter no information DILSHAD CROWE W ork no organization name 07-07-2018 Patient encounter no information no name no or ganization name procedure 06-26-2018 Patient encounter no information no name no or ganization name - procedure 06-27-2018 06-23-2018 Patient encounter no information DILSHAD CROWE W ork no organization name - procedure Phone: 06-23-2018 DILSHAD CROWE DILSHAD CROWE no information Encounter for no name no organization name preprocedural laboratory examination Medical Equipment No Information Payers Normalized Payer Value [facility] [id number] ([id number]) Advance Directives Directive Response Recor ded Date/Time Advance Directives No 9:40pm Resuscitation Status Full Code 11/15/14 9:40pm Directive Response Recor ded Date/Time Advance Directives No 2:12pm Health Care Power of Captain Waiter No 06/23/18 2:12pm Resuscitation Status Full Code 06/23/18 2:12pm Directive Response Recor ded Date/Time Advance Directives No 6:40am Health Care Power of Captain Waiter No 06/26/18 6:40am Resuscitation Status Full Code 06/26/18 6:40am Directive Response Recor ded Date/Time Advance Directives No 6:40am Health Care Power of Captain Waiter No 06/26/18 6:40am Discharge Instructions No hospital discharge instructions.No hospital discharge instruction information available.No hospital discharge instruction information available.No hospital discharge instruction information available. Chief Complaint and Reason for Visit Chief Complaint -Female Reason for Visit Recent urinary trac t infection Nausea and vomiting Additional Source Comments This clinical document has been generated using [employer] software that has been certified by the Office of the National Coordinator for Health Information Technology (ONC 15.99.04.3023.Diam.31.00.0.658707) and the National Committee for Head Start Director (NCQA, as an eMeasure certified technology). FOR RECORDS PERTAINING TO PATIENTS WHO ARE OR HAVE BEEN ENROLLED IN A CHEMICAL D EPENDENCY/SUBSTANCE ABUSE PROGRAM, SOME INFORMATION MAY BE OMITTED. This clinica l summary was aggregated from multiple sources. Caution should be exercised in using it in the provision of clinical care. This summary normalizes information from multiple sources, and as a consequence, information in this document may ma terially change the coding, format and clinical context of patient data. In carmen tion, data may be omitted in some cases. CLINICAL DECISIONS SHOULD BE BASED ON T HE PRIMARY CLINICAL RECORDS. [employer] provides no warranty or guara ntee of the accuracy or completeness of information in this document.The followi ng information is based on time limited clinical information
[2019-12-27 17:43] VITALS: BP 133/86
--- NOTE | 2019-12-27 17:56 | ED Upper Extremity ---
General Chief Complaint: Upper Extremity Stated Complaint: R ELBOW INJ Source: patient Exam Limitations: no limitations History of Present Illness Date Seen by Provider: December 27, 2019 Time Seen by Provider: 17:55 Initial Comments To ER with right elbow pain. This began about 3 hours prior when she was waiting in a grayling looking [place] when she slipped on a rock landing with all her weight on the right elbow. She can extend and flex, supinate and pronate but does have some pain to the medial aspect of the elbow. Onset: just prior to arrival Severity: moderate Pain/Injury Location: right elbow Method of Injury: fell Modifying Factors: Worse With Movement Allergies and Home Medications Allergies Coded Allergies: lactose (Verified Allergy, Unknown, 06/23/18) Home Medications Biotin 2,500 Mcg Capsule, 2,500 MCG PO DAILY, (Reported) Docusate Sodium 100 Mg Capsule, 100 MG PO BID PRN for CONSTIPATION-1ST LINE Prescribed by: DILSHAD CROWE on 06/26/18721 Hydrocodone Bit/Acetaminophen 1 Ea Tablet, 2 EA PO Q6H PRN for Pain-See Instructions Prescribed by: DILSHAD CROWE on 06/26/18721 Ibuprofen 600 Mg Tablet, 600 MG PO Q6H PRN for PAIN-MODERATE Prescribed by: DILSHAD CROWE on 06/26/18721 Levetiracetam 500 Mg Tablet, 500 MG PO BID, (Reported) Multivits,Ca,Minerals/Iron/FA 1 Each Tablet, 1 EACH PO DAILY, (Reported) Ondansetron HCl 4 Mg Tab, 4 MG PO Q6H PRN for NAUSEA/VOMITING Prescribed by: KELLY ZEPEDA on 07/07/182145 Simethicone 80 Mg Tab.chew, 40 MG PO TID PRN for INDIGESTION 2ND LINE Prescribed by: DILSHAD CROWE on 06/26/18721 Patient Home Medication List Home Medication List Reviewed: Yes Review of Systems Constitutional: see HPI EENTM: see HPI Respiratory: no symptoms reported Cardiovascular: no symptoms reported Genitourinary: no symptoms reported Musculoskeletal: see HPI Skin: no symptoms reported Psychiatric/Neurological: No Symptoms Reported Past Kapzsfm-Deltgx-Hwytzn Hx Patient Social History Recent Foreign Travel: No Contact w/Someone Who Travel: No Recent Hopitalizations: No Immunizations Up To Date Tetanus Booster (TDap): Unknown Seasonal Allergies Seasonal Allergies: Yes Past Medical History Surgeries: Yes (DXLS FOR OVARIAN CYST) Respiratory: No Cardiac: No Neurological: Yes Reproductive Disorders: Yes Sexually Transmitted Disease: No Genitourinary: No Gastrointestinal: No Irritable Bowel Musculoskeletal: No Endocrine: No HEENT: No Cancer: No (PRECANCEROUS CERVIAL) Psychosocial: No Integumentary: No Blood Disorders: No Adverse Reaction/Blood Tranf: No Family Medical History Arthritis 19 MOTHER CROHN G8 BROTHER Deafness or hearing loss 19 FATHER 19 MOTHER FH: Crohn's disease Hypertension 19 FATHER Hypertension, Seizures Physical Exam Vital Signs Vital Signs - First Documented 12/27/19 17:43 Temp 36.0 Pulse 83 Resp 20 B/P (MAP) 133/86 (102) Pulse Ox 100 O2 Delivery Room Air Capillary Refill : Height, Weight, BMI Height: 5'4.00" Weight: 145lbs. 0.0oz. 65.262668kq; 25.7 BMI Method:Estimated General Appearance: WD/WN, no apparent distress HEENT: PERRL/EOMI, normal ENT inspection Respiratory: no respiratory distress, no accessory muscle use Shoulder: normal inspection, non-tender Elbow/Forearm: normal inspection, Right, pain Wrist: Yes normal inspection Hand: normal inspection, Right Neurologic/Psychiatric: alert, normal mood/affect, oriented x 3 Skin: normal color, warm/dry Progress/Results/Core Measures Results/Orders My Orders Orders - KELLY ZEPEDA APRN Elbow, Right, 3 Views (12/27/19 17:47) Vital Signs/I&O 12/27/19 17:43 Temp 36.0 Pulse 83 Resp 20 B/P (MAP) 133/86 (102) Pulse Ox 100 O2 Delivery Room Air Departure Impression Primary Impression: Contusion of elbow Qualified Codes: S50.01XA - Contusion of right elbow, initial encounter Disposition: HOME, SELF-CARE Condition: Stable Departure-Patient Inst. Decision time for Depature: 18:20 Referrals: KYM TANNER MD (PCP/Family) Primary Care Physician Patient Instructions: Contusion (DC) Add. Discharge Instructions: 1. Wear the sling until pain resolves. If pain sticks around more than 1 or 2 days, call to discuss obtaining an MRI of the elbow. There is no evidence of fracture on x-ray, but sometimes small fractures being missed on x- ray and require MRI for diagnosis. All discharge instructions reviewed with patient and/or family. Voiced understanding. KELLY ZEPEDA LEGGER PRESS OPERATOR December 27, 2019 17:56
--- NOTE | 2019-12-27 18:15 | Diagnostic Imaging Report ---
INDICATION: Right elbow pain. EXAMINATION: Three views of the right elbow. FINDINGS: No fracture, dislocation or other acute abnormality. IMPRESSION: Negative right elbow. Dictated by: Dictated on workstation # [id number]
== END 2019-12-27 18:40 | disposition home or self-care (01) ==
LOC: EDUNIT# 17:25 → ER 17:27
DX: S50.01XA Contusion of right elbow, initial encounter (principal); Z88.8 Allergy status to other drugs, medicaments and biological substances; Z82.49 Family history of ischemic heart disease and other diseases of the circulatory system; W01.0XXA Fall on same level from slipping, tripping and stumbling without subsequent striking against object, initial encounter
CPT/HCPCS: 73080

== ENCOUNTER → 2021-05-09 | Outpatient (CLI) | payer BC, OTHER ==
--- NOTE | 2021-05-09 11:41 | Diagnostic Imaging Report ---
INDICATION: Right lateral wrist pain and swelling TECHNIQUE: 3 views of the right wrist CORRELATION STUDY: None FINDINGS: The osseous structures of the wrist have an unremarkable appearance. Alignment is anatomic. There is no acute bony abnormality. The visualized soft tissues appearing unremarkable. IMPRESSION: 1. Negative examination of the right wrist. Dictated by: Dictated on workstation # [id number]
== END ==
LOC: RAD 10:41
PROVIDERS: ATTEND Surgery Surgery of the Hand
DX: M25.531 Pain in right wrist (principal); M25.431 Effusion, right wrist
CPT/HCPCS: 73110